=== PATIENT | female | born 2000 | race Caucasian/White ===

== ENCOUNTER 2022-05-01 20:25 | Emergency (ER) | payer OTHER, SELFPAY ==
--- NOTE | ~2022-05-01 | XR_ITS ---
XR ankle LT min 3V DATE: 05/01/2022 22:20 INDICATION: Fracture dislocation TECHNIQUE: 3 views COMPARISON: None FINDINGS: There is dislocation at the tibiotalar joint are still approximately 7.5 mm lateral subluxa tion at the tibiotalar joint. There is approximately one cortical width posterolateral displacement of the lateral malleolar fractu re fragment. Displacement at the lateral malleolar fracture and IMPRESSION: Approximately 7.5 mm residual lateral subluxation of the tibiotalar joint Approximately one cortical width posterolateral displacement of the linear oblique lateral malleolar fracture Reviewed, dictated and finalized at location A. IMPRESSION: Approximately 7.5 mm residual lateral subluxation of the tibiotalar joint Approximately one cortical width posterolateral displacement of the linear obli que lateral malleolar fracture
--- NOTE | ~2022-05-01 | XR_ITS ---
XR ankle LT min 3V DATE: 05/01/2022 21:00 INDICATION: Patient fell off of a slide. Left ankle injury, pain, swelling TECHNIQUE: 4 views COMPARISON: None FINDINGS: There is lateral dislocation of the tibiotalar joint with linear oblique minimally displace d lateral malleolar fracture. The medial malleolus and posterior malleolus appear intact. There is overlying soft tissue swelling, particularly anterolaterally. IMPRESSION: Laterally displaced lateral malleolar fracture and lateral dislocation at the tibiotalar joint Reviewed, dictated and finalized at location A. IMPRESSION: Laterally displaced lateral malleolar fracture and lateral dislocat ion at the tibiotalar joint
[2022-05-01 20:40] VITALS: BP 120/60; PULSE 71; RESP 16; TEMP 37.3; O2SAT 100
--- NOTE | 2022-05-01 21:12 | ED.LOWEXIN ---
HPI - Extremity Injury (Lower) General Chief Complaint: Extremity Injury, Lower Stated Complaint: left ankle pain Time Seen by Provider: 05/01/22 20:45 Source: patient Mode of arrival: ambulatory Limitations: no limitations History of Present Illness HPI Narrative: Patient is a 21 y/o female who presents to the ED with c/o L ankle pain. Patient reports she was at the [employer] [facility] earlier today and sliding down a slide when her left foot got caught in one of the slide rails causing a twisting inversion injury. Patient complaining of pain and swelling to her left ankle since then. She was unable to ambulate. Denies any numbness, tingling, other injury. Related Data Home Medications Medication Instructions Recorded Confirmed albuterol sulfate 90 mcg/actuation 1 puff inhalation Q4H PRN 01/19/22 01/20/22 aerosol inhaler Allergies Allergy/AdvReac Type Severity Reaction Status Date / Time No Known Allergies Allergy Verified 05/01/22 20:39 Review of Systems Review of Systems: CONSTITUTIONAL: Denies fever, chills, or sweats. SKIN: See HPI. MUSCULOSKELETAL: See HPI. NEUROLOGIC: Denies tingling, numbness, or weakness. All systems reviewed & are unremarkable except as noted in HPI and below PMFSH Past Medical History Medical History Allergy Asthma Surgical History Surgical History [place] teeth extracted Family History Family History Mother No problems noted. Father Hypertension Dyslipidemia Sibling No problems noted. Grandparent Diabetes mellitus Arthritis Social History Social History Smoking status: Never smoker Alcohol intake: current Alcohol use details: socially Substance use: never Substance use type: does not use Lack of Transportation: No Lack of Food: Never True Current Housing: I Have Housing Concerned About Future Housing: No Difficulty Paying Gas/Electric Bills: No Difficulty Paying for Meds: No Currently Unemployed: No Education: High School Diploma/GED Difficulty w/ Childcare or Family Care: No Living arrangements: with family Occupation/Education: occupation Gender identity (if verbalized by the patient): Female Sexual Orientation (if Verbalized by the Patient): Straight or Heterosexual Exam Narrative: GENERAL: Well appearing, obese, non-toxic, in no acute distress. HEAD: Normocephalic, atraumatic. NECK: Supple. No adenopathy, no masses. RESPIRATORY: Airway patent, respirations nonlabored. CARDIOVASCULAR: Regular rate and rhythm without murmurs, rubs, or gallops. Pedal pulses 2+ and equal bilaterally. MUSCULOSKELETAL: Limited range of motion of left ankle due to pain. Moderate swelling noted diffusely throughout to left ankle joint. Tenderness over the left lateral malleoli. No significant tenderness along medial malleoli, metatarsals. No TTP in knee. SKIN: Warm, dry, normal color. No rashes. NEURO: A&O X3. Speech clear. Cranial nerves II-XII grossly intact. Steady gait. No ataxic movements. PSYCHIATRIC: Appropriate mood and affect. Normal interaction. Course Vital Signs Vital signs: Vital Signs Temperature 99.2 F 05/01/22 20:40 Pulse Rate 71 05/01/22 20:40 Respiratory Rate 16 05/01/22 20:40 Blood Pressure 120/60 05/01/22 20:40 Pulse Oximetry 100 05/01/22 20:40 Oxygen Delivery Room Air 05/01/22 20:40 Temperature 99.2 F 05/01/22 20:40 Pulse Rate 71 05/01/22 20:40 Respiratory Rate 16 05/01/22 20:40 Blood Pressure 120/60 05/01/22 20:40 Pulse Oximetry 100 05/01/22 20:40 Oxygen Delivery Room Air 05/01/22 20:40 Procedures Orthopedic Joint Reduction Joint #1: Orthopedic Joint Reduction Date: 05/01/22 Orthopedic Joint Reductio
[2022-05-01] MEDS: HYDROcodone/acetaminophen (*CRX) 5-325 MG TABLET 1 TAB PO (21:33)
== END 2022-05-01 23:01 | disposition home or self-care (01) ==
PROVIDERS: Emergency Provider Physician Assistant; PCP Nurse Practitioner Family
DX: S82.62XA Displaced fracture of lateral malleolus of left fibula, initial encounter for closed fracture (principal); S93.05XA Dislocation of left ankle joint, initial encounter; X50.0XXA Overexertion from strenuous movement or load, initial encounter; J45.909 Unspecified asthma, uncomplicated; Z79.51 Long term (current) use of inhaled steroids
CPT/HCPCS: 27840; 73610; 99285; A9270

== ENCOUNTER 2022-05-05 01:08 | Day surgery (SDC) | payer OTHER, SELFPAY ==
[2022-05-04 12:22] VITALS: BMI 29.5
--- NOTE | 2022-05-04 12:26 | PC.NURSE ---
Report to the Outpatient Waiting Room, entrance under the green pavilion located off [facility], at time 1300 on date 05/05/22. Planned Procedure Time: 1500. Time changes happen often and if your time is changed the preop area will call you the afternoon before. - You and your visitor will be asked to self-screen and do not enter if you have any COVID symptoms. - Only one visitor is requested with a max of two and NO children visitors are allowed at this time. - The patient visitor may be requested to leave or wait in car when not with patient due to distancing restrictions. - A mask is optional within the hospital at this time. Patients may have clear liquids (water, carbonated beverages, clear teas, apple juice) until 3 hours prior to surgery with a maximum of 20 ounces. - No food from midnight until time of surgery Take the following medications with a SIP of water the morning of surgery: INHALER DO NOT STOP ANY OF YOUR OTHER PRESCRIPTION MEDICATIONS PRIOR TO SURGERY EXCEPT THE FOLLOWING Medications to discontinue per physician: NAPROXEN Date to take last dose: PER DR. HERBERT Please no make-up, nail lithuanian, hairspray, perfume, deodorant, or body powder the day of surgery. No jewelry (including any body piercings) or valuables the day of surgery, leave them at home. Please take a shower or bath the night before, or the morning of, surgery with an antibacterial soap. Wear comfortable, loose fitting clothing. - Jewelry must be removed prior to entering the operating room. Rings and piercings that are not removed may be cut off. - The hospital will not accept responsibility for valuables. - Please leave all valuables, including medications, at home the day of surgery. If you are going home after surgery, a licensed lyft driver must drive you home. - NO public transportation without another adult if you receive anesthesia. - We recommend that an adult stay with you for 24 hours following discharge. - We also recommend that you do not drive, make important decision, drink alcoholic beverages, or take any drugs that were not prescribed by your health care provider for at least 24 hours after your discharge time. Follow any additional instructions given to you from your surgeon. If you or anyone in your household have experienced Covid symptoms in the past week, please notify your surgeon or the nurse liaison at the phone number below for possible testing. Telephone instructions given to PT - LILA LEROY and asked if any additional questions and then verbalized understanding. Patient advised to call surgeon office or pre surgery nurse liaison [phone] if any additional questions.
[2022-05-05] VITALS (7 sets, daily range): BP systolic 116–134; BP diastolic 49–75; PULSE 89–120; RESP 13–18; TEMP 36.7–37; O2SAT 100
--- NOTE | ~2022-05-05 | XR_ITS ---
EXAMINATION: XR surgery orthopedic DATE: 05/05/2022 15:21 INDICATION: Distal left fibular fracture. TECHNIQUE: 4 intraoperative views fluoroscopic views of left ankle were obtained. I was not present. Fluoroscopy exposure time was 20 seconds. COMPARISON: Left ankle radiographs 05/01/2022 FINDINGS: There is an oblique fracture of distal fibula status post open reduction internal fixation with plate and multiple screws. There is reduction of the previously seen widening of the medial ankl e mortise. IMPRESSION: 1. Oblique fracture of distal fibula status post open reduction internal fixation. 2. Reduction of the previously seen widening of the medial ankle mortise. Reviewed, dictated and finalized at location A. IMPRESSION: 1. Oblique fracture of distal fibula status post open reduction internal fixati on. 2. Reduction of the previously seen widening of the medial ankle mortise.
--- NOTE | 2022-05-05 10:19 | WPDHPUPDATE1 ---
History and Physical Update Update Date/Time: 05/05/22 10:19 History and Physical has been reviewed, including an updated exam of the patient. There are NO changes in the patient's condition. Risks, benefits, and alternatives have been discussed and questions answered. Patient agrees to proceed with procedure.
[2022-05-05] MEDS: ACETAMINOPHEN 500 MG TABLET 1000 MG PO (13:39)
--- NOTE | 2022-05-05 13:40 | WPDANESEPPF ---
Anes - Initial Pre Proc Eval Procedure: Operation Date: 05/05/22 15:00 Proposed Procedures p Open Reduction Internal Fixation Left Lateral Malleolus Ankle Fracture - Jose Coburn MD Date/Time: 05/05/22 13:40 Surgeon: Jose Coburn MD Pre Op Diagnosis: left lateral malleolus ankle fracture Patient Data Age: 21 Gender: F Height: 1.75 m Weight: 95.45 kg Last Vital Signs Temp 37.0 C 05/05/22 13:21 Pulse 89 05/05/22 13:21 Resp 16 05/05/22 13:21 BP 118/62 05/05/22 13:21 Pulse Ox 100 05/05/22 13:21 O2 Del Method Room Air 05/05/22 13:21 Allergies Allergy/AdvReac Type Severity Reaction Status Date / Time No Known Allergies Allergy Verified 05/05/22 13:34 Home Medications Medication Instructions Recorded Confirmed Type albuterol sulfate 90 mcg/actuation 1 puff inhalation Q4H PRN 01/19/22 05/05/22 History aerosol inhaler Bronchospasm naproxen 500 mg tablet 500 mg PO BID PRN pain #20 tabs 05/01/22 05/05/22 Rx oxycodone-acetaminophen 5 mg-325 1 - 2 tablet PO Q4-6H PRN pain #30 05/05/22 Rx mg tablet tabs Patient hx anesthesia problems: none Family hx anesthesia problems: none Results Review: All pre-operative results and documents have been reviewed as part of the pre-operative evaluation. [facility] Past Medical History Medical History (Updated 05/05/22 @ 13:40 by Geoffrey Cabral MD) Allergy Asthma Obesity Surgical History Surgical History [place] teeth extracted Family History Family History Mother No problems noted. Father Hypertension Dyslipidemia Sibling No problems noted. Grandparent Diabetes mellitus Arthritis Social History Social History Smoking status: Never smoker Alcohol intake: current Drinks per week: 1 Alcohol use details: socially Substance use: never Substance use type: does not use Lack of Transportation: No Lack of Food: Never True Current Housing: I Have Housing Concerned About Future Housing: No Difficulty Paying Gas/Electric Bills: No Difficulty Paying for Meds: No Currently Unemployed: No Education: High School Diploma/GED Difficulty w/ Childcare or Family Care: No Living arrangements: with family Occupation/Education: occupation Gender identity (if verbalized by the patient): Female Sexual Orientation (if Verbalized by the Patient): Straight or Heterosexual Spiritual care concerns: No Anes - Eval Final PreProcedure Day of Procedure 05/05/22 13:40 Patient weight: obese Heart: regular rate and rhythm Lungs: clear to auscultation and normal air movement Airway: Mallampati scale class II Neurological: alert and oriented Last oral intake: >/= 8 hours ASA classification: II Emergent: no Anesthetic plan: proceed Anesthesia type and monitoring: general LMA Results Review: All pre-operative results and documents have been reviewed as part of the pre-operative evaluation. Informed Consent: The patient's anesthetic plan and its attendant risks and benefits were discussed with the patient/family/POA. Questions were solicited and answers provided to the satisfaction of the patient/family/POA.
--- NOTE | 2022-05-05 13:41 | WPDANESPNB ---
Anes - Peripheral Nerve Block Date/Time: 05/05/22 13:41 I have discussed with the patient/family/POA the placement of a peripheral nerve block for post-operative pain management, including associated risks, benefits, complications, and side effects. Alternative methods of post-operative analgesia were detailed. Questions were solicited and answers provided to the satisfaction of the patient/family/POA. Time-Out: A pre-procedural Time-Out was completed immediately before starting the procedure and confirmed: Patient Identification, Site, Procedure, Patient Position and the Availability of Requisite Equipment. Clinical Indications: Acute post-operative pain management requested by the operative surgeon. Nerve Block Insertion Note Anes-nerve block: posterior fossa sciatic (20cc) left and adductor canal (10cc) left Patient position: supine Skin prep: chlorhexidine Needle: 22 gauge, stimulating, insulated echogenic needle. Needle length: 80 mm Technique: ultrasound (in plane) Injectate: bupivacaine 0.25% with epi 5 mcg/ml (20cc) Observations: tolerated well Complications: none Procedure start time:: 1400 Procedure end time:: 1405
[2022-05-05] MEDS: LACTATED RINGERS 1,000 ML 30 ML IV CONT ×2 (13:51→15:39)
[2022-05-05] MEDS: KETOROLAC 15 MG/ML VIAL (*BKC) IV PUSH (13:52)
[2022-05-05] MEDS: ceFAZolin 2 GM/D5W 50 ML 2 GM/50 ML BAG IVPB (14:19)
--- NOTE | 2022-05-05 15:56 | W.PM.PROC2 ---
Procedure Note - Detailed Date of Procedure 05/05/22 Pre-op Diagnosis 1. Left lateral malleolus ankle fracture 2. Left ankle deltoid ligament sprain. Post-op Diagnosis Other Procedure Performed ORIF left ankle lateral malleolus fracture. Surgeon Jose Coburn MD Anesthesia General Findings Excellent bone quality. Anatomic fracture reduction. 1/3 Synthes tubular plate used. Nonlocking screws. AP lag screw with good compression. Syndesmosis intact. Description of Procedure With a general anesthetic was administered. The limb was prepped and draped in the usual sterile fashion with a well-padded tourniquet high on the thigh. A bump was placed under the hip. The limb was exsanguinated and the tourniquet inflated to 300 millimeters of mercury during the procedure. A longitudinal incision was created at the distal fibula. Careful dissection was carried down to bone. Perineal nerve branches were protected. The fracture was carefully exposed. Callus and debris was irrigated from the wound. The fracture was brought out to length. Reduction was accomplished with the reduction forceps. A single anterior to posterior compression lag screw was placed. The fixation plate was contoured. Fixation was performed with a combination of cortical and cancellous screws. Fluoroscopy was used throughout the procedure to confirm anatomic reduction and appropriate placement of the implants. The tourniquet was released. Meticulous hemostasis was obtained. Wound was closed in layers with 2-0 Vicryl suture 3-0 Monocryl suture and sandeep. A sterile splint with padding was applied. The patient was extubated and brought to the recovery room in stable condition. There were no complications. Implants Synthes 1/3 tubular 7 hole plate. Cortical and cancellous nonlocking screws. Estimated Blood Loss 5 Pathology None sent Complications No immediate complications Condition Stable Disposition PACU [facility] Billing Surgery - Charge Forward: Surgery Billing
--- NOTE | 2022-05-05 16:10 | SUR.PHASEI ---
1601: Simple mask removed.
== END 2022-05-05 17:27 | disposition home or self-care (01) ==
PROVIDERS: PCP Nurse Practitioner Family; Visit Provider Orthopaedic Surgery
PROC: (CPT 27792; principal; 2022-05-05 15:00)
DX: S82.62XA Displaced fracture of lateral malleolus of left fibula, initial encounter for closed fracture (principal); S93.422A Sprain of deltoid ligament of left ankle, initial encounter; G89.18 Other acute postprocedural pain; X50.0XXA Overexertion from strenuous movement or load, initial encounter; J45.909 Unspecified asthma, uncomplicated; Z79.51 Long term (current) use of inhaled steroids; E66.9 Obesity, unspecified; Z68.31 Body mass index [BMI] 31.0-31.9, adult
CPT/HCPCS: 27792; 64447; 64445; 99199; A9270; C1713; J0690; J1100; J1885; J2250; J2405; J2704; J3010; J7120

== ENCOUNTER 2022-08-31 17:28 | Outpatient (CLI) | payer OTHER, SELFPAY ==
[2022-09-04 14:47] LABS: DHEA-Sulfate 236 mcg/dL (18-391)
[2022-09-05 05:11] LABS: FSH 3.8 mIU/mL (***); Progesterone 0.4 ng/mL (***)
[2022-09-07 10:46] LABS: Testosterone Free 1.1 pg/mL (0.1-6.4); Testosterone Total 27 ng/dL (2-45)
[2022-09-08 01:56] LABS: Estradiol, Ultrasensitive 7 pg/mL
== END 2022-08-31 17:29 | disposition home or self-care (01) ==
PROVIDERS: PCP Nurse Practitioner Family; Visit Provider Obstetrics & Gynecology
DX: L70.0 Acne vulgaris (principal)
CPT/HCPCS: 36415; 82627; 82670; 83001; 83498; 84144; 84146; 84402; 84403

== ENCOUNTER 2024-01-17 13:56 | Emergency (ER) | payer OTHER, SELFPAY ==
--- NOTE | 2024-01-17 14:01 | ED.URI ---
HPI - URI/Sore Throat General Chief Complaint: Upper Respiratory Infection Stated Complaint: flu like symptoms Time Seen by Provider: 01/17/24 14:05 Source: patient Mode of arrival: ambulatory Limitations: no limitations History of Present Illness HPI Narrative: Patient is a 23-year-old female presents with headache, fatigue, congestion a cough since Wednesday. Denies any fever, chills, nausea, vomiting, diarrhea. Related Data Home Medications Medication Instructions Recorded Confirmed spironolactone 100 mg tablet 100 mg PO DAILY 01/27/23 01/17/24 norethindrone 1 mg-ethinyl 1 tablet PO DAILY 01/05/24 01/17/24 estradiol 20 mcg (24)-iron 75 mg (4) tablet (Blisovi 24 Fe) Allergies Allergy/AdvReac Type Severity Reaction Status Date / Time No Known Allergies Allergy Verified 01/17/24 14:03 Review of Systems Review of Systems: All systems reviewed & are unremarkable except as noted in HPI and below Constitutional: Constitutional: Denies body ache(s), Denies chills, Reports fatigue, Denies fever(s), Reports headache(s), Denies malaise and Denies weakness Eyes: Eyes: Denies blurry vision, Denies itchy eyes and Denies loss of vision ENT: Denies otalgia, Denies headache(s), Reports nasal congestion, Denies sinus pain and Denies sore throat Cardiovascular: Cardiovascular: Denies chest pain, Denies irregular heart rhythm and Denies dyspnea Respiratory: Respiratory: Reports cough and Denies dyspnea Gastrointestinal: Gastrointestinal: Denies abdominal pain, Denies diarrhea, Denies nausea and Denies vomiting Musculoskeletal: Musculoskeletal: Denies back pain, Denies myalgias and Denies arthralgias Integumentary/Breasts: Skin/Breast: Denies pruritus and Denies rash Neurologic: Denies headache(s), Denies loss of vision and Denies weakness Psychiatric: Psychiatric: Reports no additional psychiatric complaints Endocrine: Endocrine: Denies fatigue Allergic/Immunologic: Allergic/Immunologic: Denies itchy eyes PMFSH Past Medical History Medical History Allergy Asthma Obesity Surgical History Surgical History History of ankle surgery History of open reduction and internal fixation (ORIF) procedure (~05/05/22) ORIF left ankle lateral malleolus fracture. [place] teeth extracted Family History Family History Mother No problems noted. Father Hypertension Dyslipidemia Sibling No problems noted. Grandparent Diabetes mellitus Arthritis Sibling History of PCOS Social History Social History Social History: 09/16/23 Patient declined to complete SDOH Smoking status: Never smoker Alcohol intake: current Drinks per week: 1 Alcohol use details: socially Substance use: never Substance use type: does not use Lack of Transportation: No Lack of Food: Never True Current Housing: I Have Housing Concerned About Future Housing: No Difficulty Paying Gas/Electric Bills: No Difficulty Paying for Meds: No Currently Unemployed: No Education: High School Diploma/GED Difficulty w/ Childcare or Family Care: No Living arrangements: with family Occupation/Education: occupation Gender identity (if verbalized by the patient): Female Sexual Orientation (if Verbalized by the Patient): Straight or Heterosexual Spiritual care concerns: No Comments At time of signature, agree with nursing past medical, surgical, social and family history. There is no relevant family history pertinent to the presenting complaint. Exam Const: General: cooperative, healthy appearing, comfortable, no acute distress and well nourished Nutritional Appearance: well nourished Orientation/consciousness: patient oriented x3 Limitations: no limitations HENMT: Head: normal to inspection, normocephalic and atraumatic Ears: hearing grossly normal bilaterally, external ears normal, TM's normal bilaterally, EAC's normal and no periauricular adenopathy Face/Nose/Sinus: Normal external nose present, Abnormal mucous membranes and turbinates present erythematous bilateral and diffuse, normal facial exam, sinuses nontender and face symmetric Face and sinus: normal facial exam, sinuses nontender and face symmetric Mouth: Yes Normal oral and palatal mucosa present, Yes lip normal, Yes tongue normal, Yes Normal salivary glands and ducts present, Yes oropharynx normal and Yes moist mucous membranes Teeth and gingiva: dentition normal Throat: posterior oropharynx normal, tonsils normal and uvula midline Eyes: General: appearance normal, both eyes and all related structures Alignment and Position: alignment normal and position normal Periorbital: periorbital findings normal Eyelids: eyelids normal Pupils: Equal, round and reactive pupils present Neck: Neck: normal visual inspection, full ROM, no lymphadenopathy and supple Chest: Chest palpation & inspection: normal inspection of the chest and normal palpation of entire chest wall Resp: Effort & Inspection: normal respiratory effort and able to speak in complete sentences Auscultation: clear to auscultation bilaterally, no crackles, no rales, no rhonchi and no wheezes Cardio: Rate: regular rate Rhythm: regular rhythm Heart sounds: S1 normal heart sound present and S2 normal heart sound present GI: Inspection: normal to inspection Skin: General skin exam: normal color and no rashes or lesions noted Neuro: General: patient oriented x3 and moves all extremities Cranial nerves: Yes Equal, round and reactive pupils present Speech: normal speech Gait exam (Neuro): Normal gait present Extrem: General: normal to inspection, full ROM and no edema Psych: Appearance: grossly normal and well kempt Mental Status: mental status grossly normal Speech and movement: Normal speech and movement present Affect: normal affect Attitude: cooperative Thought process: Normal thought process present Course Course Emergency Course: Patient is aware of diagnosis, understands and agrees to treatment plan. Anticipatory guidance given. Patient agrees to follow-up as directed and is aware of reasons to seek care at the emergency department. Portions of this record may have been created with voice recognition software Level of Care: Express Care Visit Vital Signs Vital signs: Vital Signs Temperature 36.7 C 01/17/24 14:05 Pulse Rate 104 H 01/17/24 14:05 Respiratory Rate 18 01/17/24 14:05 Blood Pressure 137/86 01/17/24 14:05 Pulse Oximetry 100 01/17/24 14:05 Oxygen Delivery Room Air 01/17/24 14:05 Temperature 36.7 C 01/17/24 14:05 Pulse Rate 104 H 01/17/24 14:05 Respiratory Rate 18 01/17/24 14:05 Blood Pressure 137/86 01/17/24 14:05 Pulse Oximetry 100 01/17/24 14:05 Oxygen Delivery Room Air 01/17/24 14:05 Reviewed MDM - URI/Sore Throat MDM Narrative Medical decision making narrative: Discharge instructions reviewed with patient, as well as provided in writing per nursing staff. The instructions also include specific and strict return/GO TO THE ER as well as f/u information. All questions have been answered, and the patient deny any further questions with discharge and discharge plan. Differential diagnosis considered: Lara virus, strep pharyngitis, allergic rhinitis, upper respiratory tract infection, sinusitis, rhinosinusitis, nasopharyngitis. viral pharyngitis, otitis media, otitis externa, otitis effusion, foreign body, cerumen impaction, viral syndrome, and influenza.? Exam findings show no acute concerns or changes; patient is non-toxic appearing and is in no distress.? Patient is appropriate for outpatient treatment and follow-up.? Medical Records Attestation: I reviewed the patient's medical records. Lab Data Attestation: I reviewed the patient's lab results. Labs: Lab Results 01/17/24 Range/Units 14:20 POC Influenza A Ag Negative (Negative) POC Influenza B Ag Positive (Negative) Discharge Plan Discharge Clinical Impression: Influenza Patient Disposition: Home, Self-Care Condition: Stable Instructions: Influenza (ED) Additional Instructions: Your positive for influenza B Symptomatic treatments include -Alternate Tylenol and Motrin per package directions for fever or pain. -Antihistamine medication such as Benadryl/Zyrtec at night and Claritin/Caity during the day can help improve symptoms. -Use Flonase twice a day for 5 days then daily to help reduce the inflammation and dry up your sinuses. -You can also use Sudafed behind the pharmacy counter(12 or 24 hour). Be sure to drink plenty of water with these medications at least 8 ounces with every dose and it is important to drink 8 to 10 glasses of water per day. Water is a natural decongestant -Eat and drink things that are easy to swallow, like tea or soup, or popsicles. -Oral rinses such as: Salt water gargles and/or may use topical anesthetic (eg. Chloraseptic spray) or lozenges to relieve dryness or throat pain). -Frequent hand washing or hand milled rubber tender is one of the best ways to prevent spread of infection. -Using a vaporizer or humidifier at night will also help thin secretions and help with coughing up phlegm. -Follow up with primary care provider in 3-5 days if condition is not improving - For new or worsening symptoms go directly to the nearest ER Prescriptions: New oseltamivir [Tamiflu] 75 mg capsule 75 mg PO Q12H 5 Days Qty: 10 0RF No Action Blisovi 24 Fe 1 mg-20 mcg (24)/75 mg (4) tablet 1 tablet PO DAILY spironolactone 100 mg tablet 100 mg PO DAILY albuterol sulfate 90 mcg/actuation HFA aerosol inhaler 2 puff inhalation Q4H PRN (Reason: Bronchospasm) Qty: 8.5 2RF budesonide-formoterol [Symbicort] 80-4.5 mcg/actuation HFA aerosol inhaler 2 puff inhalation Q12H Qty: 10.2 0RF Follow-up/Referrals: PHYSICIAN,WOODEN FRAME [employer]ILDER [Primary Care Provider] - Servando Baldiwn MD [Physician] - 3 Days (Establish care) Stand Alone Forms: Work/School Release IP Time of Disposition: 14:32
[2024-01-17 14:05] VITALS: BP 137/86; PULSE 104; RESP 18; TEMP 36.7; O2SAT 100
[2024-01-17 14:22] LABS: EDINFLUASCREEN Negative (Negative); EDINFLUBSCREEN Positive (Negative)
== END 2024-01-17 14:33 | disposition home or self-care (01) ==
PROVIDERS: Emergency Provider Nurse Practitioner Family
DX: J10.1 Influenza due to other identified influenza virus with other respiratory manifestations (principal); J45.909 Unspecified asthma, uncomplicated; E66.9 Obesity, unspecified; Z68.30 Body mass index [BMI] 30.0-30.9, adult
CPT/HCPCS: 87804; 99213; G0463

== ENCOUNTER 2024-03-11 19:04 | Emergency (ER) | payer OTHER, SELFPAY ==
--- OUTSIDE RECORDS SUMMARY | 2024-03-11 19:06 | XMS_ITS | Data Portability ---
Author Organization [place] - [facility]/[place], [place]ern[place] Juan F ([facility]) Address [address] [place] [address] Care Team Providers Care Telephoner Name Role Phone SANDI CRAIG Primary Care Provider [phone] Assessment No assessment recorded. Plan of Treatment Reminders Order Date Submit Date Provider Last Modified By Organization Details Last Modified Time Details Appointments None recorded. Lab unlisted lab - *ih* strep screen, rapid swab (inhouse only) 2021 022 [facility], [address] [place] [address], [phone], 17:44:32 PPD (purified protein derivative) , skin test [email or web address] [place] [address] Laboratory, [address] [place] [address], [phone], 13:50:12 Referral None recorded. Procedures None recorded. Surgeries None recorded. Imaging None recorded. Medication Orders Tubersol 5 tub. unit/0.1 mL intradermal injection solution 2021 022 Not available 17:09:10 Patient TargetsNo targets recorded. Patient Instructions Encounter Date Encounter Id Patient Instructions Last Modified By Organization Details Last Modified Time 05/28/2021 [id number] sore throat: car e instructions sachin Not available 05/28/2021 17:39:40 10/06/2021 [id number] learning about healthy weight sachin Not available 10/06/2021 17:57:47 Reason for Referral None Reported. Results Created Date Observation Date Name Description Value Unit Range Abnormal Flag Note LastModifiedBy Organization Detail LastModifiedTime 05/29/19 22 05/28/2021 STREP SCREE N strep screen NEGATI VE negati ve Not Available [facility] [address] [place] [address], [phone], 05/28/2021 17:44:32 Result Notes None recorded. Problems Name Problem SNOMED Code Status Onset Date Resolution Date Notes Provider Name and Address Organization Details Recorded Time Asthma [id number] Active 022 Sandi Craig, NOEMI [address] [place] [address], [phone] , [facility] 05/28/2021 17:09:21 Problem Notes None recorded. Procedures Surgical History Date Name Laterality Status Provider Name and Address Organization Details Recorded Time extraction of wisdom tooth completed Laverne Contreras [facility] 10/06/2021 17:10:16 Imaging Results None recorded. Procedure Notes None recorded. Medical Equipment None Reported. Allergies No known drug allergies Medications Name Sig Start Date Stop Date Status Note LastModified by Organization Details LastModified Time amoxicill in 500 mg capsule TAKE 1 CAPSULE BY MOUTH 3 TIMES A DAY UNTIL GONE 10/06 completed Not Available Not Available Not Available hydrocodo ne 5 mg-acetam inophen 325 mg tablet TAKE 1 OR 2 TABS EVERY 6 HOURS NEEDED FOR PAIN 10/06 completed Not Available Not Available Not Available Tubersol 5 tub. unit/0.1 mL intraderm al injection solution Inject 0.1 mL by intrader mal route. 10/06 completed Left forearm Not Available Not Available Not Available rizatript an 10 mg tablet TAKE 1/2 TO 1 TABLET EVERY 2 HOURS NEEDED FOR HEADACHE . MAX DOSE OF 3 TABS IN A 24 HOUR PERIOD 10/06 completed Not Available Not Available Not Available amoxicill in 875 mg-potass ium clavulana te 125 mg tablet TAKE 1 TABLET BY MOUTH EVERY 12 HOURS UNTIL FINISHED 10/06 completed Not Available Not Available Not Available Symbicort active Not Available Not Nieves ilable Not Available Tri-Lo-Ma rzia 0.18 mg/0.215 mg/0.25 mg-25 mcg tablet TAKE 1 TABLET BY MOUTH ONCE DAILY. 28 DAY SUPPLY. NEEDS APPT FOR FURTHER REFILLS* * 10/06 completed Not Available Not Available Not Available ID NOW COVID-19 Test Kit TEST DIRECTED TODAY 10/06 completed Not Available Not Available Not Available Vitals Date Recorded Body height Provider Name an d Address Organization Details Last Updated DateTime 10/06/2021 175.26 cm Laverne Contreras [facility] 10/06/2021 17:00:21 Date Recorded Body mass index (BMI) Body weight Provider Name and Address Organization Details Last Updated DateTime 10/06/2021 30.1 kg/m2 95944.13 g Laverne Contreras [facility] 10/06/2021 17:03:24 Date Recorded Heart rate Provider Name an d Address Organization Details Last Updated DateTime 10/06/2021 85 /min Laverne Contreras [facility] 10/06/2021 17:05:52 Date Recorded Oxygen saturation Oxygen saturation in Arterial blood by Pulse oximetry Provider Name and Address Organization Details Last Updated DateTime 10/06/2021 98 % 98 % Laverne Contreras [facility] 10/06/2021 17:05:56 Date Recorded Body temperature Provider Name a nd Address Organization Details Last Updated DateTime 10/06/2021 98.8 [degF] Laverne Contreras [facility] 10/06/2021 17:08:25 Date Recorded Body weight Provider Name an d Address Organization Details Last Updated DateTime 05/28/2021 56646.56 g Laverne Contreras [facility] 05/28/2021 16:52:31 Date Recorded Body mass index (BMI) Provider Name and Address Organization Details Last Updated DateTime 05/28/2021 30.2 kg/m2 Laverne Contreras [facility] 05/28/2021 16:52:45 Date Recorded Body height Provider Name an d Address Organization Details Last Updated DateTime 05/28/2021 175.26 cm Laverne Contreras [facility] 05/28/2021 16:52:46 Date Recorded Heart rate Provider Name an d Address Organization Details Last Updated DateTime 05/28/2021 111 /min Laverne Ross [facility] 05/28/2021 16:53:13 Date Recorded Oxygen saturation Oxygen saturation in Arterial blood by Pulse oximetry Provider Name and Address Organization Details Last Updated DateTime 05/28/2021 99 % 99 % Laverne Contreras [facility] 05/28/2021 16:53:19 Date Recorded Systolic blood pressure Diastolic blood pressure Provider Name and Address Organization Details Last Updated DateTime 10/06/2021 128 mm[Hg] 72 mm[Hg] Laverne Contreras [facility] 10/06/2021 17:08:18 Date Recorded Systolic blood pressure Diastolic blood pressure Provider Name and Address Organization Details Last Updated DateTime 05/28/2021 112 mm[Hg] 72 mm[Hg] Laverne Contreras [facility] 05/28/2021 16:55:44 Social History Question Answer Notes LastModified by Organizat ion Details LastModified Time Tobacco Smoking Status [facility] 16:59:42 What Is Your Level Of Alcohol Consumption? Occasional Information not available 05/28/2021 Are You Currently Employed? Yes [email or web address] Information not available 10/06/2021 Are You Currently In School? Yes [email or web address] Information not available 10/06/2021 Do You Or Have You Ever Used Any Other Forms Of Tobacco Or Nicotine? No [email or web address] Information not available 05/28/2021 Sex: Unknown Functional Status None recorded. Mental Status None recorded. Family History Relationship Description Onset Age of this Age Resolved Age Notes LastModified by Organization Details LastModified Time Father No current problems or disability [email or web address] Not available 05/28 16:59:05 Mother No current problems or disability [email or web address] Not available 05/28 16:59:05 Maternal Grandfather Diabetes mellitus [email or web address] Not available 2021 17:10:48 Medical History Condition Response Mood Disorder, other N Gynecological History Statement/Question Response Date of LMP 09/29/2021 Obstetrics History GPAL:G 0 P 0 0 0 0 Immunizations Vaccine Type Date Status Note Provider Nam e and Address Organization Details Recorded Time COVID-19, mRNA, LNP-S, PF, 100 mcg/0.5mL dose or 50 mcg/0.25mL dose 1 completed Laverne downing, [facility] 05/28/2021 16:57:44 COVID-19, mRNA, LNP-S, PF, 100 mcg/0.5mL dose or 50 mcg/0.25mL dose 1 completed Laverne downing [facility] 05/28/2021 16:58:02 COVID-19, mRNA, LNP-S, PF, 100 mcg/0.5mL dose or 50 mcg/0.25mL dose 2 completed [facility] downing[facility] 05/28/2021 16:58:23 Influenza, split virus, quadrivalent, preservative 1 completed Sandi Craig NP [address] [place] [address], [phone], [facility] 05/28/2021 17:09:54 Past Encounters Encounter ID Performer Location Encounter Start Date Encounter Closed Date Diagnosis/Indication Diagnosis SNOMED-CT Code Diagnosis ICD10 Code Diagnosis Note [id number] Sandi Craig NP _[place] [facility] [address] [place] [phone] 05/28/2021 16:47:24 06/12/2021 11:09:06 Sore throat 735843969 J02.9 Negative rapid strep screen in office today. Encouraged patient to continue taking Zyrtec-D OTC per package instructio ns.Tylenol and Motrin OTC as needed per package instructio ns.Discuss ed the risks and benefits of recommende d medication s. After all questions were answered the patient consented to take the medication as prescribed .Salt water gargles frequently for comfort.Re st. Push fluids. Good handwashin g. Avoid close contact.Di scussed the plan of care with the patient. The patient agrees to plan of care. The patient will follow up as discussed. Return to the office with worsening of symptoms, new concerning symptoms, or with other concerns. History an d physical examination, [facility] 03334165 Z02.0 05/28/2021 iscussed healthy diet and continued regular exercise. Dentist twice a year for preventive visits and eye doctor for every-othe r-year eye exams. Safety.For m for student teaching completed. TST placed- patient will return on Wednesday05/30/2021 to have that read. [id number] Sandi Craig NP [place] [facility] [address] [place] [phone] 05/30/2021 16:37:20 06/05/2021 03:25:09 Tuberculosis screening 107654833 Z11.1 Discussed with patient. [id number] Sandi Craig NP [place] [facility] [address] [place] [phone] 10/06/2021 16:47:40 10/17/2021 11:17:02 Adult health examination 105961051 Z00.00 Counseled on diet, exercise, safe sex, sleep hygiene, vaccines. Form completed for substitute teaching. She is not in a high-risk category and does not need TB skin testing at this time.Discu ssed the plan of care with the patient. The patient agrees to plan of care. The patient will follow up as discussed. Return to the office with worsening of symptoms, new concerning symptoms, or with other concerns. Obesity 419461918 E66.9 Controlled /Stable. Continue efforts at improved diet and exercise. Health Concerns Section Related Observation LastModified by Organization Detai ls LastModified Time None Recorded Concern Status LastModified by Organization Details LastModified Time None Recorded Advance Directives Directive None Recorded Payers Encounter Date Sequence Insurance Name Policy Number Policy Hawkins Covered Member ID Hawkins Member ID Guarantor Name 05/28/2021 1 [facility] [id number] Santi Santillan [id number] Amalia Santillan 05/30/2021 1 [facility] [id number] Santi Santillan [id number] Amalia Santillan 10/06/2021 1 [facility] [id number] Santi Santillan [id number] Amalia Santillan Notes Date Note Type Note Provider Name and Address Organization Details Recorded Time 05/28/2021 text/html Sore ThroatRepor domingo bypatient.[facility] Onset/Timing:date of onset 05/27 Duration:started 1 day(s) ago Quality:difficulty swallowing Severity:same Context:no recent travel 05/28/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 LMP: 3 weeks ago. Not sexually active.Tries to eat a healthy diet. Exercises 4 x/week.Goes to the dentist regularly.Wears reading glasses. Sore throat started last night and she has a history of strep. Some runny nose that is not unusual for her and no PND. No cough. No n/v/d. Eating and drinking okay. No unusual rashes. No recent travel. No known fevers. Took Ibuprofen last night so not sure if it helped. Also took a Zyrtec-D for symptoms. Sandi Craig NP [address] [place] [address], [phone], [facility] 05/28/2021 17:29:10 10/06/2021 text/html Patient reports she is in good health . Tries to eat a well balanced diet- no dietary restrictions. Tries to exercise regularly. Goes to the dentist twice a year and last visit was a few months ago. Last preventive eye exam was earlier this year- she wears reading glasses. Not sexually active at this time. Sleep is adequate and she averages around 8 hours per night. She states she has had the Gardasil vaccine series. No complaints or concerns. Sandi Craig NP [address] [place] [address], [phone], [facility]/[place] 10/06/2021 17:57:52 OBGyn Episode No OBEpisode recorded.
--- OUTSIDE RECORDS SUMMARY | 2024-03-11 19:06 | XMS_ITS | Referral Summary ---
Author Organization [facility] Address [address] [place] [address] Care Team Providers Care Prepper Name Role Phone Shannan Conner MD Primary Care Provider [phone] Source Comments [facility],non-owned Affiliates and Associated Physician Practices is amultiple site organization consisting of ambulatory clinics and hospital sitesin [place], [place], [place] and [place]. This disclosure is being madepursuant to the Care Everywhere program and may not contain all information available regarding this patient. Last updated 17.[facility] Allergies No known active allergies Medications * Be aware that medications may not be up to date on this document. Alwaysverify current medications with the patient. Medication Sig Dispensed Refills Start Date End Date Status albuterol HFA (PROAIR HFA) 108 (90 BASE) MCG/ACT inhaler Inhale 2 Puffs by mouth every 4 hours as needed for Wheezing 1 Inhaler 12/11/2015 Active SYMBICORT 80-4.5 MCG/ACT inhaler Inhale 2 puffs by mouth 2 times daily 10/08/2019 Active [id number] 0.18/0.215/0.25 MG-25 MCG tabletIndications:Ac ne vulgaris TAKE 1 TABLET BY MOUTH ONCE DAILY . 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 (AF LURIA, FLUZONE TRIVALENT; 6MO+) (IIV3) 01/01/2012,11/13/2010,01/21/2009 DTaP VACCINE IM (6wk-6yrs) 05/27/2004,,1999,10/05,1999 HEP A PEDS 2 DOSE 01/01/2012,07/31/2010 HEP B VACCINE, PED/ADOL 02/26/2000,1999, HIB BOOSTER 12/17/2000, 0,1999,08/04 Human Papilloma Virus Roz valent Vaccine 01/01/2012,08/03/2011,11/13/2010 MENINGOCOCCAL CONJUGATE (MCV4P) 08/03/2011 MMR 05/27/2004,05/28/2000 POLIO IPV 05/27/2004, 1,1999,08/04 PPD 05/24/2000 TDAP (7yrs+) 07/31/2010 VARICELLA 07/31/2010,06/10/2001 Social History Tobacco Use Types Packs/Day Years Used Date Smoking Tobacco: Never Smokeless Tobacco: Never Alcohol Use Standard Drinks/Week Comments No 0 (1 standard drink = 0.6 oz pur e alcohol) Sex and Gender Information Value Date Recorded Sex Assigned at Not on file Gender Identity Not on file Sexual Orientation Not on file Last Filed Vital Signs Vital Sign Reading Time Taken Comments Blood Pressure 106/58 10/17/2014 1:11 PM CDT Pulse 76 09/19/2012 10:33 AM CDT Temperature 36.3 ??C (97.4 ??F) 12/26/2013 3:50 PM CS T Respiratory Rate - - Oxygen Saturation - - Inhaled Oxygen Concentration - - Weight 76.9 kg (169 lb 8.5 oz) 10/17/2014 1:11 P M CDT Height 172.3 cm (5' 7.84 ) 10/17/2014 1:11 PM CD T Body Mass Index 25.9 10/17/2014 1:11 PM CDT Plan of Treatment Not on file Care Teams Prepper Relationship Specialty Start Date End Date Shannan Conner MD PCP - General 08/03/17
--- OUTSIDE RECORDS SUMMARY | 2024-03-11 19:06 | XMS_ITS | Patient Health Summary ---
Author Organization [facility] Address [address] [place] [place] [address] Care Team Providers Care Cathode Builder Name Role Phone Shannan Conner MD Primary Care Provider [phone] [facility],non-owned Affiliates and Associated Physician Practices is amultiple site organization consisting of ambulatory clinics and hospital sitesin [place], [place], [place] and [place]. This disclosure is being madepursuant to the Care Everywhere program and may not contain all information available regarding this patient. Last updated 17.[facility] Allergies No known active allergies Medications * Be aware that medications may not be up to date on this document. Alwaysverify current medications with the patient. * albuterol HFA (PROAIR HFA) 108 (90 BASE) MCG/ACT inhaler(Started 12/11/2015) Inhale 2 Puffs by mouth every 4 hours as needed for Wheezing * SYMBICORT 80-4.5 MCG/ACT inhaler(Started 10/08/2019) Inhale 2 puffs by mouth 2 times daily * [id number] 0.18/0.215/0.25 MG-25 MCG tablet(Started 05/19/2021) TAKE 1 TABLET BY MOUTH ONCE DAILY . 30 DAY SUPPLY Active Problems Problem Noted Date Diagnosed Date Acne vulgaris 02/19/2020 Proteinuria 10/17/2014 Asthma, intermittent 08/03/2011 Resolved Problems Problem Noted Date Diagnosed Date Resolved Date Exercise-induced asthma 08/03/2011 07/0 02/2013 Asthma 04/30/2009 08/03/2011 Immunizations * INFLUENZA VACCINE, TRIV. (AFLURIA, FLUZONE TRIVALENT; 6MO+) (IIV3)(Given 01/01/2012, 11/13/2010, 01/21/2009) * DTaP VACCINE IM (6wk-6yrs)(Given 05/27/2004, 12/17/2000, 1999, 1999, 1999) * HEP A PEDS 2 DOSE(Given 01/01/2012, 07/31/2010) * HEP B VACCINE, PED/ADOL(Given 02/26/2000, 1999, 1999) * HIB BOOSTER(Given 12/17/2000, 1999, 1999, 1999) * Human Papilloma Virus Quadrivalent Vaccine(Given 01/01/2012, 08/03/2011, 11/13/2010) * MENINGOCOCCAL CONJUGATE (MCV4P)(Given 08/03/2011) * MMR(Given 05/27/2004, 05/28/2000) * POLIO IPV(Given 05/27/2004, 08/23/2000, 1999, 1999) * PPD(Given 05/24/2000) * TDAP (7yrs+)(Given 07/31/2010) * VARICELLA(Given 07/31/2010, 06/10/2001) Social History Tobacco Use Types Packs/Day Years [...] Mass Index 25.9 10/17/2014 1:11 PM CDT Procedures * URINE MICROSCOPIC ONLY(Performed 10/18/2014) Performed for Proteinuria * URINALYSIS REFLEX TO MICROSCOPIC NO CULTURE(Performed 10/18/2014) Performed for Proteinuria * CBC W/O DIFFERENTIAL(Performed 10/17/2014) Performed for Proteinuria * COMPLEMENT C3(Performed 10/17/2014) Performed for Proteinuria * RENAL FUNCTION PANEL(Performed 10/17/2014) Performed for Proteinuria * URINALYSIS - POCT (IP) BEAKER(Performed 10/17/2014) * URINALYSIS - POINT OF CARE(Performed 09/19/2012) Performed for Urine findings abnormal * URINALYSIS MICROSCOPIC ONLY REFLEXED(Performed 09/19/2012) Performed for Urine findings abnormal * URINALYSIS REFLEX TO MICROSCOPIC NO CULTURE(Performed 09/19/2012) Performed for Urine findings abnormal * LAB RESULTS ORDER(Performed 09/15/2012) Results * URINALYSIS ROUTINE AUTO (10/18/2014 6:30 AM CDT) Only the most recent of2 resultswithin the time period is included. Color UA Yellow Straw, Yellow, Dark Yellow 10/18/2014 5:14 PM [facility] Clarity UA Clear 10/18/2014 5:14 PM [facility] Specific Robinson UA 1.020 1.005 - 1.030 10/18/2014 5:14 PM [facility] pH UA 6.0 5.0 - 8.0 pH 10/18/2014 5:14 PM [facility] Protein UA Negative Negative 10/18/2014 5:14 PM [facility] Blood UA Negative Negative 10/18/2014 5:14 PM [facility] Leukocyte UA Negative Negative 10/18/2014 5:14 PM [facility] Nitrite UA Negative Negative 10/18/2014 5:14 PM [facility] Glucose UA Negative Negative 10/18/2014 5:14 PM [facility] Ketone UA Negative Negative 10/18/2014 5:14 PM [facility] Bilirubin UA Negative Negative 10/18/2014 5:14 PM [facility] Urobilinogen UA 0.2 0.1 - 1.0 EU/dL 10/18/2014 5:14 PM CDT [facility] Urine URINE SPECIMEN OBTAINED BY CLEAN CATCH PROCEDURE / Unknown Collection / Unknown 10/18/2014 6:30 AM CDT 10/18/2014 4:56 PM CDT Johnathon Akins MD LAB - URINAL YSIS ORDERABLES Performing Organization Address [facility] Co de Phone Number [facility] [address] [place] [phone] * URINALYSIS MICROSCOPIC ONLY (10/18/2014 6:30 AM CDT) RBC UA 0-2 0-2, 2-5 # /hpf 10/18/2014 6:11 PM CDT [facility] WBC UA 0-2 0-2, 2-5 # /hpf 10/18/2014 6:11 PM CDT [facility] Bacteria UA Trace None Seen, Trace 10/18/2014 6:11 PM CDT [facility] Epithelial Cell UA 0-2 0-2, 2-5 10/18/2014 6:11 PM T [facility] Urine URINE SPECIMEN OBTAINED BY CLEAN CATCH PROCEDURE / Unknown Collection / Unknown 10/18/2014 6:30 AM CDT 10/18/2014 4:56 PM CDT Johnathon Akins MD LAB - URINAL YSIS ORDERABLES Performing Organization Address [facility] Co de Phone Number [facility] [address] [place] [phone] * (ABNORMAL) CBC NO DIFFERENTIAL (10/17/2014 2:10 PM CDT) WBC 7.9 4.5 - 14.5 x10^9/L 10/17/2014 2:38 PM CDT [facility] RBC 4.51 4.10 - 5.10 x10^12/L 10/17/2014 2:38 PM CDT [facility] Hemoglobin 12.7 12.0 - 16.0 gm/dL 10/17/2014 2:38 PM CDT [facility] Hematocrit 38.3 36.0 - 47.0 % 10/17/2014 2:38 PM CDT [facility] MCV 84.9 78.0 - 98.0 fl 10/17/2014 2:38 PM CDT [facility] MCH 28.2 25.0 - 35.0 pg 10/17/2014 2:38 PM CDT [facility] MCHC 33.2 31.0 - 37.0 gm/dL 10/17/2014 2:38 PM CDT [facility] Platelet Count 307 100 - 400 x10^9/L 10/17/2014 2:38 PM T [facility] RDW-CV 12.6 11.5 - 14.0 % 10/17/2014 2:38 PM CDT [facility] MPV 9.7(H) 6.0 - 9.5 fl 10/17/2014 2:38 PM T [facility] Blood BLOOD SPECIMEN / Unknown Lab Venipuncture / Unknown 10/17/2014 2:10 PM CDT 10/17/2014 2:27 PM CDT Johnathon Akins MD LAB - HEMATO LOGY ORDERABLES Performing Organization Address City/State/[facility] Co de Phone Number [facility] [address] [place] [address] * (ABNORMAL) RENAL FUNCTION PANEL (10/17/2014 2:10 PM CDT) Glucose 114(H) 70 - 105 mg/dL 10/17/2014 4:11 PM CDT [facility] Sodium 142 136 - 145 mmol/L 10/17/2014 4:11 PM T [facility] Potassium 3.8 3.5 - 5.1 mmol/L 10/17/2014 4:11 PM T [facility] Chloride 111(H) 98 - 107 mmol/L 10/17/2014 4:11 PM CDT [facility] CO2 22 20 - 28 mmol/L 10/17/2014 4:11 PM CDT [facility] Calcium 9.40 9.08 - 10.48 mg/dL 10/17/2014 4:11 PM T [facility] Anion Gap 9 5 - 20 mmol/L 10/17/2014 4:11 PM T [facility] BUN 10.5 5.3 - 18.7 mg/dL 10/17/2014 4:11 PM CDT [facility] Creatinine 0.80 0.61 - 1.07 mg/dL 10/17/2014 4:11 PM T [facility] Albumin 4.0 3.3 - 4.9 gm/dL 10/17/2014 4:11 PM T [facility] Phosphorus 4.19 2.88 - 5.08 mg/dL 10/17/2014 4:11 PM T [facility] eGFR by MDRD mL/min/1.7 3m2 10/17/2014 4:11 PM T [facility] Comment: eGFR calculations are not performed for children under 18 years old. eGFR by MDRD mL/min/1.7 3m2 10/17/2014 4:11 PM T [facility] Comment: eGFR calculations are not performed for children under 18 years old. Blood BLOOD SPECIMEN / Unknown Lab Venipuncture / Unknown 10/17/2014 2:10 PM CDT 10/17/2014 2:28 PM CDT Johnathon Akins MD LAB - CHEMIS TRY ORDERABLES Performing Organization Address City/[facility]/ZIP Co de Phone Number [facility] [address] [place] [phone] * COMPLEMENT C3 (10/17/2014 2:10 PM CDT) Complement C3 95 83 - 193 mg/dL 10/17/2014 4:11 PM CDT [facility] Blood BLOOD SPECIMEN / Unknown Lab Venipuncture / Unknown 10/17/2014 2:10 PM CDT 10/17/2014 2:28 PM CDT Johnathon Akins MD LAB - CHEMIS TRY ORDERABLES [facility] [address] [place] [phone] * URINALYSIS - POCT (IP) BEAKER (10/17/2014 1:36 PM CDT) Glucose UA Negative Negative [facility] Bilirubin UA Negative Negative [facility] OCT [facility] Ketone UA Negative Negative [facility] Specific Robinson UA POCT 1.015 1.000 - 1.030 [facility] Blood UA Negative Negative [facility] pH UA 7.0 5.0 - 8.0 pH units [facility] Protein UA Negative Negative [facility] Urobilinogen UA 0.2 0.2 - 1.0 EU/dL [facility] Nitrite UA Negative Negative [facility] Leukocyte UA Negative Negative [facility] P OCT [facility] QC Verified Yes Yes [facility] PO CT TESTING Urine specimen (specimen) URINE / Unknown 10/17/2014 1:36 PM CDT Johnathon Akins MD LAB - POINT OF CARE ORDERABLES Performing Organization Address City/State/[facility] Co de Phone Number [facility] PO[facility] [address] [phone] * (ABNORMAL) URINALYSIS - POINT OF CARE (09/19/2012 11:11 AM CDT) Clarity UA POCT clear with sediment Color UA POCT dark mik Leukocyte UA trace Negative Nitrite UA POCT Negative Urobilinogen UA POCT 0.1 - 1.0 EU/dL Protein UA POCT Negative pH UA 5.0 - 8.0 pH units Blood UA Negative Specific Robinson UA POCT 1.025 1.002 - 1.030 Ketone UA 5 Negative Bilirubin UA POCT Negative Glucose UA Negative Urine specimen (specimen) URINE / Unknown 09/19/2012 11:11 AM CDT Shannan Conner MD LAB - POINT OF CARE ORDERABLES * URINALYSIS MICROSCOPIC ONLY REFLEXED (PO REF LAB) (09/19/2012 10:58 AM CDT) WBC UA 0-5 0 - 5 /hpf [facility] ACCOUNT BILL RBC UA None seen 0 - 3 /hpf [facility] ACCOUNT BILL Epithelial Cells (non renal) 0-10 0 - 10 /hpf [facility] ACCOUNT BILL Epithelial Cells (renal) NOT NEEDED [facility] ACCOUNT BILL Comment:Ancillary determined the test is not needed Casts ua NOT NEEDED [facility] ACCOUNT BILL Comment:Ancillary determined the test is not needed Casts UA NOT NEEDED [facility] ACCOUNT BILL Comment:Ancillary determined the test is not needed Crystals UA NOT NEEDED [facility] ACCOUNT BILL Comment:Ancillary determined the test is not needed Crystals UA NOT NEEDED [facility] ACCOUNT BILL Comment:Ancillary determined the test is not needed Mucus UA Present Not Estab. [facility] ACCOUNT BILL Bacteria UA Few None seen/Few [facility] ACCOUNT BILL Yeast UA NOT NEEDED [facility] ACCOUNT BILL Comment:Ancillary determined the test is not needed Trichomonas UA NOT NEEDED [facility] ACCOUNT BILL Comment:Ancillary determined the test is not needed Comment Urine NOT NEEDED [facility] ACCOUNT BILL Comment:Ancillary determined the test is not needed URINE SPECIMEN OBTAINED BY CLEAN CATCH PROCEDURE / Unknown 09/19/2012 10:58 AM CDT 09/19/2012 9:13 PM CDT Narrative Resulting Agency Comment [facility] [address] ??[facility] [phone] Shannan Conner MD LAB - URINALYSIS ORD ERABLES [facility] ACCOUNT BILL * LAB RESULTS ORDER (09/15/2012) Shannan Conner MD LAB - THERAPEUTIC DR ECHOLS MONITORING ORDERABLES Care Teams Cathode Builder Relationship Specialty Start Date End Date Shannan Conner MD PCP - General 08/03/17
--- OUTSIDE RECORDS SUMMARY | 2024-03-11 19:06 | XMS_ITS | Clinical Summary ---
Author Organization [facility] Address [address] [place] [address]. [place], [place] [address] [place] [phone] Care Team Providers Care Strip Machine Tender Name Role Phone None, Provider Primary Care Provider Unavaila ble Allergies No known active allergies Medications budesonide-formo terol 160-4.5 MCG/ACT inhaler Inhale 1 puff into the lungs daily. 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 Gender Identity Not on file Sexual Orientation Not on file Last Filed Vital Signs Vital Sign Reading Time Taken Comments Blood Pressure 130/75 09/16/2020 11:23 AM CDT Pulse 73 09/16/2020 11:23 AM CDT Temperature 36.8 ??C (98.3 ??F) 09/16/2020 11:23 AM C DT Respiratory Rate 18 09/16/2020 11:23 AM CDT Oxygen Saturation 98% 09/16/2020 11:23 AM CDT Inhaled Oxygen Concentration - - Weight 90.7 kg (200 lb) 09/16/2020 11:23 AM CDT Height 172.7 cm (5' 8 ) 09/16/2020 11:23 AM CDT Body Mass Index 30.41 09/16/2020 11:23 AM CDT Plan of Treatment Health Maintenance Due Date Last Done Comments Cervical Cancer Screening Pap Smear (Age 21 to 29) Every 3 Years 1999 Cervical Cancer Screening 1999 Annual Physical 05/25/2002 Hepatitis C 05/25/2017 DTaP, Tdap and Td Vaccines (7 - Td or Tdap) 07/31/2020 07/31/2010, 05/27/2004, 12/17/2000, Additional history exists COVID-19 Vaccine ( season) 2023 Influenza Adult (#1) 2023 01/01/2012, 11/13/2010, 01/21/2009 Hepatitis B Vaccines Completed 02/26/2000, 1999, 1999 Meningococcal Vaccine Aged Out 08/03/2011 No onesimo blaise eligible based on patient's age to complete this topic HPV Vaccines Completed 01/01/2012, 07/10, 11/13/2010 Meningococcal B Vaccine Aged Out No l onger eligible based on patient's age to complete this topic Pneumococcal Vaccine: Pediatrics (0 to 5 Years) and At-Risk Patients (6 to 64 Years) Aged Out No longer eligible based on patient's age to complete this topic RSV Immunizations Under 20 Months Aged Out No longer eligible based on patient's age to complete this topic Insurance Care Teams Strip Machine Tender Relationship Specialty Start Date End Date None, Provider, PCP - General 09/16/20
--- OUTSIDE RECORDS SUMMARY | 2024-03-11 19:06 | XMS_ITS | Clinical Summary ---
Author Organization [facility] Address [address] [place] [address] Care Team Providers Care Thermometer Tester Name Role Phone Shannan Conner MD Primary Care Provider [phone] Source Comments [facility],non-owned Affiliates and Associated Physician Practices is amultiple site organization consisting of ambulatory clinics and hospital sitesin [place], [place], [place]. This disclosure is being madepursuant to the Care Everywhere program and may not contain all information available regarding this patient. Last updated 17.[facility] Allergies No known active allergies Medications [...] by mouth 2 times daily 10/08/2019 Active [id number] 0.18/0.215/0.25 MG-25 MCG tabletIndications:Ac ne vulgaris TAKE 1 TABLET BY MOUTH ONCE DAILY . 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 - continue [...] PPD 05/24/2000 TDAP (7yrs+) 07/31/2010 VARICELLA 07/31/2010,06/10/2001 Family History Medical History Relation Name Comments None Known Brother None Known Father None Known Maternal Aunt None Known Maternal Grandfather None Known Maternal Grandmother None Known Maternal Uncle None Known Mother None Known Other None Known Paternal Aunt None Known Paternal Grandfather None Known Paternal Grandmother None Known Paternal Uncle None Known Sister Asthma Neg Hx CVA Neg Hx Cancer - Breast Neg Hx Cancer - Other Neg Hx Cancer - Skin, Melanoma Neg Hx Cancer - Skin, Non Melanoma Neg Hx Eczema Neg Hx Hemophilia Neg Hx Psoriasis Neg Hx Relation Name Status Comments Brother Father Maternal Aunt Maternal Grandfather Maternal Grandmother Maternal Uncle Mother Other Paternal Aunt Paternal Grandfather Paternal Grandmother Paternal Uncle Sister Social History Tobacco Use Types Packs/Day Years [...] 10/17/2014 1:11 PM CDT Plan of Treatment Health Maintenance Due Date Last Done Comments PAP SMEAR 1999 HIV SCREENING 05/25/2014 CHLAMYDIA/GONORRHEA SCREENING 2015 HEPATITIS C SCREENING 05/21/2017 PNEUMOCOCCAL VACCINE (1 of 2 - PCV) 05/25/2018 DTAP/TDAP/TD VACCINES (7 - Td or Tdap) 07/31/2020 07/31/2010, 05/27/2004, 12/17/2000, Additional history exists COVID-19 VACCINE ( season) 2023 INFLUENZA VACCINE (#1) 2023 2, 11/13/2010, 01/21/2009 DEPRESSION SCREENING 02/09/2024 ZOSTER VACCINE (1 of 2) 05/25/2049 HEPATITIS B VACCINE Completed 02/26/2000, 1999, 1999 HIB VACCINE Completed 12/17/2000, 11/10, 1999, Additional history exists MENINGOCOCCAL VACCINE Aged Out 08/03/2011 No onesimo blaise eligible based on patient's age to complete this topic HPV VACCINE Completed 01/01/2012, 07/10, 11/13/2010 MENINGOCOCCAL (Group B) VACCINE Aged Out No longer eligible based on patient's age to complete this topic Care Teams Thermometer Tester Relationship Specialty Start Date End Date Shannan Conner MD PCP - General 08/03/17
[2024-03-11 19:23] VITALS: BP 142/83; PULSE 113; RESP 18; TEMP 37.1; O2SAT 99
--- NOTE | 2024-03-11 19:46 | ED.GENADULT ---
HPI - General Adult General Chief complaint: Upper Respiratory Infection Stated complaint: fever/ body chills Time Seen by Provider: 03/11/24 19:46 Source: patient Mode of arrival: ambulatory Limitations: no limitations History of Present Illness HPI narrative: 23-year-old female patient presents to [facility] with complaints of flu-like symptoms including fever, sore throat, body aches and chills that started yesterday. Patient denies taking any medications for the symptoms. Related Data Home Medications ?Medication ?Instructions ?Recorded ?Confirmed ?Last Taken ?Type spironolactone 100 mg tablet 100 mg PO DAILY 01/27/23 01/17/24 Unknown History Allergies Allergy/AdvReac Type Severity Reaction Status Date / Time No Known Allergies Allergy Verified 03/11/24 19:31 Review of Systems Review of Systems: CONSTITUTIONAL: Positive fever, body aches and chills, or sweats. EYES: Denies visual changes, redness, or discharge. ENT: positive rhinorrhea, congestion, sore throat, denies otalgia. CARDIOVASCULAR: Denies chest pain, palpitations, or edema. RESPIRATORY: Denies cough or dyspnea. GASTROINTESTINAL: Denies abdominal pain, nausea, vomiting, or diarrhea. GENITOURINARY: Denies dysuria or hematuria. SKIN: Denies rash or itching. MUSCULOSKELETAL: Denies back pain, joint pain, or myalgia. NEUROLOGIC: Denies headache, numbness, or weakness. PSYCHIATRIC: Denies anxiety or depression. [facility] Past Medical History Medical History Obesity Asthma Allergy Surgical History Surgical History History of ankle surgery History of open reduction and internal fixation (ORIF) procedure (~05/05/22) ORIF left ankle lateral malleolus fracture. [place] teeth extracted Family History Family History Mother No problems noted. Father Hypertension Dyslipidemia Sibling No problems noted. Grandparent Diabetes mellitus Arthritis Sibling History of PCOS Social History Social History Social History: 09/16/23 Patient declined to complete SDOH Smoking status: Never smoker Alcohol intake: current Drinks per week: 1 Alcohol use details: socially Substance use: never Substance use type: does not use Lack of Transportation: No Lack of Food: Never True Current Housing: I Have Housing Concerned About Future Housing: No Difficulty Paying Gas/Electric Bills: No Difficulty Paying for Meds: No Currently Unemployed: No Education: High School Diploma/GED Difficulty w/ Childcare or Family Care: No Living arrangements: with family Occupation/Education: occupation Gender identity (if verbalized by the patient): Female Sexual Orientation (if Verbalized by the Patient): Straight or Heterosexual Spiritual care concerns: No Comments At the time of my signature I agree with nursing past medical history, surgical, social, and family history. There is no relevant family history pertinent to the presenting complaint. Exam Narrative: GENERAL: Well-appearing, well-nourished, and in no acute distress. HEAD: Normocephalic, atraumatic. EYES: PERRLA and EOMI. ENT: Nares clear, no rhinorrhea or epistaxis. Mucous membranes moist. posterior pharynx no erythema, tonsillar enlargement, exudates or lesions present. Bilateral TMs are clear no erythema or foreign bodies the canal. NECK: Supple. No lymphadenopathy CHEST: Clear to auscultation. No respiratory distress. HEART: Regular rate and rhythm. No murmur heard. Normal peripheral pulses. ABDOMEN: Soft, nontender, nondistended, normal active bowel sounds. EXTREMITIES: Normal range of motion. No edema. SKIN: Warm, dry, no rash. NEURO: No focal deficits. Alert and oriented x3. Course Course Level of Care: Express Care Visit Vital Signs Vital signs: Vital Signs Temperature 37.1 C 03/11/24 19:23 Pulse Rate 113 H 03/11/24 19:23 Respiratory Rate 18 03/11/24 19:23 Blood Pressure 142/83 H 03/11/24 19:23 Pulse Oximetry 99 03/11/24 19:23 Oxygen Delivery Room Air 03/11/24 19:23 Temperature 37.1 C 03/11/24 19:23 Pulse Rate 113 H 03/11/24 19:23 Respiratory Rate 18 03/11/24 19:23 Blood Pressure 142/83 H 03/11/24 19:23 Pulse Oximetry 99 03/11/24 19:23 Oxygen Delivery Room Air 03/11/24 19:23 Vital signs reviewed. The patient has been informed that they may have pre-hypertension or Hypertension based on a BP reading in the department. I recommend that the patient call the primary care provider listed on their discharge instructions or a physician of their choice this week to arrange follow up for further evaluation of possible pre-hypertension or Hypertension Medical Decision Making MDM Narrative Medical decision making narrative: Plan of care for patient is to discharge home. Discussed with patient that she is positive for influenza A day and to take Tylenol, ibuprofen and [id number] medications. Discussed with her she has lots of rest and fluids that this should pass a couple of days. Patient verbalized understanding denies any other questions or concerns at this time. Differential Diagnosis Differential Diagnosis: Differential diagnosis: Allergic rhinitis, chronic sinusitis, tonsillitis, acute sinusitis, infectious mononucleosis, seasonal influenza, pertussis, diphtheria, meningococcal disease, viral syndrome, viral bronchitis, RSV, COVID-19 Vital Signs Vital Signs: Vital Signs Temperature 37.1 C 03/11/24 19:23 Pulse Rate 113 H 03/11/24 19:23 Respiratory Rate 18 03/11/24 19:23 Blood Pressure 142/83 H 03/11/24 19:23 Pulse Oximetry 99 03/11/24 19:23 Oxygen Delivery Room Air 03/11/24 19:23 Temperature 37.1 C 03/11/24 19:23 Pulse Rate 113 H 03/11/24 19:23 Respiratory Rate 18 03/11/24 19:23 Blood Pressure 142/83 H 03/11/24 19:23 Pulse Oximetry 99 03/11/24 19:23 Oxygen Delivery Room Air 03/11/24 19:23 Critical Care Time Critical Care Time Critical Care Time: No Discharge Plan Discharge Clinical Impression: Influenza A Patient Disposition: Home, Self-Care Condition: Stable Instructions: Antibiotic Form, Influenza (ED) Additional Instructions: Influenza (the flu) is an infection caused by the influenza virus. The flu is easily spread when an infected person coughs, sneezes, or has close contact with others. You may be able to spread the flu to others for 1 week or longer after signs or symptoms appear. DISCHARGE INSTRUCTIONS: Call your local emergency number (911 in the [place]) if: You have trouble breathing, and your lips look purple or blue. You have a seizure. Call your doctor if: You are dizzy, or you are urinating less or not at all. You have a headache with a stiff neck, and you feel tired or confused. You have new pain or pressure in your chest. Your symptoms, such as shortness of breath, vomiting, or diarrhea, get worse. Your symptoms, such as fever and coughing, seem to get better, but then get worse. You have new muscle pain or weakness. You have questions or concerns about your condition or care. Medicines: You may need any of the following: Acetaminophen decreases pain and fever. It is available without a doctor's order. Ask how much to take and how often to take it. Follow directions. Read the labels of all other medicines you are using to see if they also contain acetaminophen, or ask your doctor or pharmacist. Acetaminophen can cause liver damage if not taken correctly. Do not use more than 4 grams (4,000 milligrams) total of acetaminophen in one day. NSAIDs , such as ibuprofen, help decrease swelling, pain, and fever. This medicine is available with or without a doctor's order. NSAIDs can cause stomach bleeding or kidney problems in certain people. If you take blood thinner medicine, always ask your healthcare provider if NSAIDs are safe for you. Always read the medicine label and follow directions. Rest as much as you can to help you recover. Patient Language: Persian Prescriptions: No Action spironolactone 100 mg tablet 100 mg PO DAILY albuterol sulfate 90 mcg/actuation HFA aerosol inhaler 2 puff inhalation Q4H PRN (Reason: Bronchospasm) Qty: 8.5 2RF budesonide-formoterol [Symbicort] 80-4.5 mcg/actuation HFA aerosol inhaler 2 puff inhalation Q12H Qty: 10.2 0RF Blisovi 24 Fe 1 mg-20 mcg (24)/75 mg (4) tablet See Rx Instructions .ROUTE .COMPLEX Qty: 84 3RF Dose Instruction: TAKE 1 TABLET DAILY Rx Instructions: TAKE 1 TABLET DAILY Follow-up/Referrals: PHYSICIAN,GAMEPLAY ENGINEER [Primary Care Provider] - Time of Disposition: 19:51
[2024-03-11 19:52] LABS: EDINFLUASCREEN Positive (Negative); EDINFLUBSCREEN Negative (Negative)
[2024-03-11 19:58] VITALS: BP 124/79
== END 2024-03-11 19:58 | disposition home or self-care (01) ==
PROVIDERS: Emergency Provider Nurse Practitioner Family
DX: J10.1 Influenza due to other identified influenza virus with other respiratory manifestations (principal); J45.909 Unspecified asthma, uncomplicated; E66.9 Obesity, unspecified; Z68.31 Body mass index [BMI] 31.0-31.9, adult
CPT/HCPCS: 87804; 99212; G0463

== ENCOUNTER 2024-07-12 11:53 | Emergency (ER) | payer OTHER, SELFPAY ==
--- OUTSIDE RECORDS SUMMARY | 2024-07-12 11:55 | XMS_ITS | Data Portability ---
Author Organization [facility]/DC/CT, _CT_Brianernie Juan F ([facility]) Address [address] [place] [address] Care Team Providers Care Incident Engineer Name Role Phone RAFA SANDI Primary Care Provider [phone] Assessment No assessment recorded. Plan of Treatment Reminders Order Date Submit Date Provider Last Modified By Organization Details Last Modified Time Details Appointments None recorded. Lab PPD (purified protein derivative) , skin test [email or web address] [place] [address] Laboratory, [address] [place] [address], [phone], 13:50:12 unlisted lab - *ih* strep screen, rapid swab (inhouse only) 2021 022 ARI [facility], [address] [place], [address], 17:44:32 Referral None recorded. Procedures None recorded. Surgeries None recorded. Imaging None recorded. Medication Orders Tubersol 5 tub. unit/0.1 mL intradermal injection solution 2021 022 [email or web address] Not available 17:09:10 Patient TargetsNo targets recorded. Patient Instructions Encounter Date Encounter Id Patient Instructions Last Modified By Organization Details Last Modified Time 05/28/2021 [id number] sore throat: car e instructions [email or web address] Not available 05/28/2021 17:39:40 10/06/2021 [id number] learning about healthy weight [email or web address] Not available 10/06/2021 17:57:47 Reason for Referral None Reported. Results Created Date Observation Date Name Description Value Unit Range Abnormal Flag Note LastModifiedBy Organization Detail LastModifiedTime 05/29/19 22 05/28/2021 STREP SCREE N strep screen NEGATI VE negati ve Not Available [facility] [address] [place] [address], [phone], 05/28/2021 17:44:32 Result Notes None recorded. Problems Name Problem SNOMED Code Status Onset Date Resolution Date Notes Provider Name and Address Organization Details Recorded Time Asthma 196588910 Active 022 Sandi Gutierrez, NOEMI [address] [place] [address], [phone] , [facility] 05/28/2021 17:09:21 Problem Notes None recorded. Procedures Surgical History Date Name Laterality Status Provider Name and Address Organization Details Recorded Time extraction of wisdom tooth completed Laverne Contreras [facility] 10/06/2021 17:10:16 Imaging Results None recorded. Procedure [...] Not Available Tri-Lo-Ma rzia 0.18 mg/0.215 mg/0.25 mg-0.025 mg tablet TAKE 1 TABLET BY MOUTH ONCE DAILY. 28 DAY SUPPLY. NEEDS APPT FOR FURTHER REFILLS* * 10/06 completed Not Available Not Available Not Available ID NOW COVID-19 Test Kit TEST DIRECTED TODAY 10/06 completed Not Available Not Available Not Available Vitals Date Recorded Body weight Body mass index (BMI) Body height Heart rate Oxygen saturation Oxygen saturation in Arterial blood by Pulse oximetry Systolic blood pressure Diastolic blood pressure Provider Name and Address Organization Details Last Updated DateTime 2 82564.5 6 g 30.2 kg/m2 175.26 cm 111 /min 99 % 99 % 112 mm[Hg] 72 mm[Hg] Laverne Contreras [facility] 2 16:55:44 Date Recorded Body height Body mass index (BMI) Body weight Heart rate Oxygen saturation Oxygen saturation in Arterial blood by Pulse oximetry Body temperature Systolic blood pressure Diastolic blood pressure Provider Name and Address Organization Details Last Updated DateTime 2 175.26 cm 30.1 kg/m2 15584.1 3 g 85 /min 98 % 98 % 98.8 [degF] 128 mm[Hg] 72 mm[Hg] Laverne Contreras [facility] 2 17:08:18 Social History Question Answer Notes LastModified by [employer] Details LastModified Time Tobacco Sm[facility] Status [facility] 16:59:42 Are You Currently In School? Yes Information not available 10/06/2021 Sex: Unknown Functional Status Question Answer Note LastModified by [employer] Details LastModified Time Do you or have you ever used any other forms of tobacco or nicotine? No [email or web address] Information not available 05/28/2021 What is your level of alcohol consumption? Occasional [email or web address] Information not available 05/28/2021 Are you currently employed? Yes [email or web address] Information not available 10/06/2021 Mental Status None recorded. Family History Relationship Description Onset Age of this Age Resolved Age Notes LastModified by Organization Details LastModified Time Father No current problems or disability [email or web address] Not available 05/28 16:59:05 Mother No current problems or disability [email or web address] Not available 05/28 16:59:05 Maternal Grandfather Diabetes mellitus [email or web address] Not available 2021 17:10:48 Medical History Condition Response Mood Disorder, other N Gynecological History Statement/Question Response Date of LMP 09/29/2021 Obstetrics History GPAL:G 0 P 0 0 0 0 Immunizations Vaccine Type Date Status Note Provider Yann marin and Address Organization Details Recorded Time COVID-19, mRNA, LNP-S, PF, 100 mcg/0.5mL dose or 50 mcg/0.25mL dose 1 [facility] 16:57:44 COVID-19, mRNA, LNP-S, PF, 100 mcg/0.5mL dose or 50 mcg/0.25mL dose 1 [facility]28[facility]21 16:58:02 COVID-19, mRNA, LNP-S, PF, 100 mcg/0.5mL dose or 50 mcg/0.25mL dose 2 [facility]28[facility]21 16:58:23 Influenza, split virus, quadrivalent, preservative 1 completed Sandi Gutierrez NP [address] [place] [address], [phone], [facility] 05/28/2021 17:09:54 Past Encounters Encounter ID Performer Location Encounter Start Date Encounter Closed Date Diagnosis/Indication Diagnosis SNOMED-CT Code Diagnosis ICD10 Code Diagnosis Note [id number] Sandi Gutierrez NP [place] [address] [place] [address] 05/28/2021 16:47:24 06/12/2021 11:09:06 Sore throat 132414381 J02.9 Negative rapid strep screen in office [...] other concerns. History an d physical examination, [facility] 26091079 Z02.0 05/28/2021 iscussed healthy diet and continued regular exercise. Dentist twice a year for preventive visits and eye doctor for every-othe r-year eye exams. Safety.For m for student teaching completed. TST placed- patient will return on Wednesday05/30/2021 to have that read. [id number] Sandi Gutierrez NP _[place]_[facility] [address] [address] 05/30/2021 16:37:20 06/05/2021 03:25:09 Tuberculosis screening 388458479 Z11.1 Discussed with patient. [id number] Sandi Gutierrez NP _[place]_[facility] [address] [place] [id number] 10/06/2021 16:47:40 10/17/2021 11:17:02 Adult health examination 925168197 Z00.00 Counseled on diet, exercise, safe sex, [...] concerning symptoms, or with other concerns. Obesity 995740490 E66.9 Controlled /Stable. Continue efforts at improved diet and exercise. Health Concerns Section Related Observation LastModified by Organization Detai ls LastModified Time None Recorded Concern Status LastModified by Organization Details LastModified Time None Recorded Advance Directives Directive None Recorded Payers Insurance Date Sequence Insurance Name Policy Number Policy Hawkins Covered Member ID Hawkins Member ID Guarantor Name 10/17/2021 1 [facility] [id number] Santi Santillan [id number] Amalia Santillan Notes Date Note Type Note Provider Name and Address Organization Details Recorded Time 05/28/2021 text/html Sore ThroatRepor domingo bypatient.Location:[facility] Onset/Timing:date of onset 05/27 Duration:started 1 [...] Also took a Zyrtec-D for symptoms. Sandi Gutierrez NP [address] [place] [address], [phone], [facility] 05/28/2021 17:29:10 10/06/2021 text/html Patient reports she is in good health. Tries to eat a well balanced diet- [...] vaccine series. No complaints or concerns. Sandi Gutierrez NP [address] [place] [address], [phone], [facility]/[place]/10/06/2021 17:57:52 OBGyn Episode No OBEpisode recorded.
--- OUTSIDE RECORDS SUMMARY | 2024-07-12 11:55 | XMS_ITS | Clinical Summary ---
Author Organization [facility] Address [address] [facility] [place] [address] Care Team Providers Care Shorer Name Role Phone Shannan Conner MD Primary Care Provider [phone] Source Comments [facility],non-owned Affiliates and Associated Physician Practices is amultiple site organization consisting of ambulatory clinics and hospital sitesin [place], [place], [place] and [place]. This disclosure is being madepursuant to the Care Everywhere program and may not contain all information available regarding this patient. Last updated 17.[facility] Allergies No known active allergies Medications * Be aware that medications may not be up to date on this document. Alwaysverify current medications with the patient. albuterol HFA (PROAIR HFA) 108 (90 BASE) MCG/ACT inhaler Inhale 2 Puffs by mouth every 4 hours as needed for Wheezing 1 Inhaler 12/11/2015 Active SYMBICORT 80-4.5 MCG/ACT inhaler Inhale 2 puffs by mouth 2 times daily 10/08/2019 Active [id number] 0.18/0.215/0.25 MG-25 MCG tabletIndicatio ns:Acne vulgaris TAKE 1 TABLET BY MOUTH ONCE DAILY . 30 DAY SUPPLY 28 tablet 05/19/2021 Active Active Problems Problem Noted Date Diagnosed Date Acne vulgaris 02/19/2020 Assessment & Plan (02/19/2020 11:55 AM [facility]): - controlled to pt liking - continue otc differin qod and OCPs as below -discussed pt to get pap smear if sexually active and wear condoms Proteinuria 10/17/2014 Asthma, intermittent 08/03/2011 Resolved Problems Problem Noted Date Diagnosed Date Resolved Date Exercise-induced asthma 08/03/2011 07/0 02/2013 Asthma 04/30/2009 08/03/2011 Immunizations Immunization Administration Dates Next Due INFLUENZA VACCINE, TRIV. (AF LURIA, FLUZONE TRIVALENT; 6MO+) (IIV3) 01/01/2012,11/13/2010,01/21/2009 DTaP VACCINE IM (6wk-6yrs) 05/27/2004,,1999,10/05,1999 HEP A PEDS 2 DOSE 01/01/2012,07/31/2010 HEP B VACCINE, PED/ADOL 02/26/2000,1999, HIB BOOSTER 12/17/2000, 0,1999,08/04 Human Papilloma Virus Roz valent Vaccine 01/01/2012,08/03/2011,11/13/2010 MENINGOCOCCAL ACWY (MCV4P) VAC IM 08/03/2011 MMR 05/27/2004,05/28/2000 POLIO IPV 05/27/2004, 1,1999,08/04 [...] at Not on file Legal Sex Female 6:49 AM [facility] Gender Identity Not on file Sexual Orientation Not on file Last Filed Vital Signs Vital Sign Reading Time Taken Comments Blood Pressure 106/58 10/17/2014 1:11 PM CDT Pulse 76 09/19/2012 10:33 AM CDT Temperature 36.3 C (97.4 F) 12/26/2013 3:50 PM [facility] Respiratory Rate - - Oxygen Saturation - - Inhaled Oxygen Concentration - - Weight 76.9 kg (169 lb 8.5 oz) 10/17/2014 1:11 P M CDT Height 172.3 cm (5' 7.84) 10/17/2014 1:11 PM CD T Body Mass Index 25.9 10/17/2014 1:11 PM CDT Plan of Treatment Health Maintenance Due Date Last Done Comments PAP SMEAR 1999 HIV SCREENING 05/25/2014 CHLAMYDIA/GONORRHEA SCREENING 2015 HEPATITIS C SCREENING 05/21/2017 PNEUMOCOCCAL VACCINE (1 of 2 - PCV) 05/25/2018 DTAP/TDAP/TD VACCINES (7 - Td or Tdap) 07/31/2020 07/31/2010, 05/27/2004, 12/17/2000, Additional history exists COVID-19 VACCINE ( season) 2023 DEPRESSION SCREENING 02/09/2024 INFLUENZA VACCINE (Season Ended) 2024 01/01/2012, 11/13/2010, 01/21/2009 ZOSTER VACCINE (1 of 2) 05/25/2049 HEPATITIS B VACCINE Completed 02/26/2000, 1999, 1999 HIB VACCINE Completed 12/17/2000, 11/10, 1999, Additional history exists MENINGOCOCCAL GROUPS A/C/Y/W VACCINE Aged Out 08/03/2011 No longer eligible based on patient's age to complete this topic HPV VACCINE Completed 01/01/2012, 07/10, 11/13/2010 MENINGOCOCCAL (Group B) VACCINE SHARED DECISION-MAKING Aged Out No longer eligible based on patient's age to complete this topic Insurance Care Teams Shorer Relationship Specialty Start Date End Date Shannan Conner MD PCP - General 08/03/17
[2024-07-12 12:02] VITALS: BP 128/78; PULSE 92; RESP 17; TEMP 36.5; O2SAT 100
--- NOTE | 2024-07-12 12:38 | ED.SKABFB ---
HPI - Skin/Abscess/Foreign Bdy General Chief complaint: Skin/Abscess/Foreign Body Stated complaint: Skin/Abscess/Foreign Body History of Present Illness HPI narrative: Patient is a 24-year-old female presents to the ER with skin around her coccyx. she reports she 1st noticed this night she was showering yesterday. Patient denies any fevers, discharge from the site, or injury to the site. She reports the site does not hurt when she is sitting, but is painful when she touches it. Pt endorses a history of asthma, L ankle surgery, and takes control. Related Data Home Medications ?Medication ?Instructions ?Recorded ?Confirmed ?Last Taken ?Type spironolactone 100 mg tablet 100 mg PO DAILY 01/27/23 05/24/24 Unknown History Allergies Allergy/AdvReac Type Severity Reaction Status Date / Time No Known Allergies Allergy Verified 07/12/24 12:19 Review of Systems Review of Systems: All systems reviewed & are unremarkable except as noted in HPI and below PMFSH Past Medical History Medical History Obesity Asthma Allergy Surgical History Surgical History History of ankle surgery History of open reduction and internal fixation (ORIF) procedure (~05/05/22) ORIF left ankle lateral malleolus fracture. [place] teeth extracted Family History Family History Mother No problems noted. Father Hypertension Dyslipidemia Sibling No problems noted. Grandparent Diabetes mellitus Arthritis Sibling History of PCOS Social History Social History Smoking status: Never smoker Alcohol intake: current Drinks per week: 1 Alcohol use details: socially Substance use: never Substance use type: does not use Current Housing: Decline to Answer Concerned About Future Housing: Decline to Answer Difficulty Paying Gas/Electric Bills: Decline to Answer Difficulty Paying for Meds: Decline to Answer Currently Unemployed: Decline to Answer Education: Decline to Answer Difficulty w/ Childcare or Family Care: Decline to Answer Living arrangements: with family Occupation/Education: occupation Additional occupation/education comments: teacher Gender identity (if verbalized by the patient): Female Sexual Orientation (if Verbalized by the Patient): Straight or Heterosexual Spiritual care concerns: No Exam Narrative: GENERAL: Well appearing, well-nourished, non-toxic, in no acute distress. NECK: Supple. No adenopathy, no masses. RESPIRATORY: Airway patent, respirations nonlabored. Clear to auscultation bilaterally, no rales, rhonchi, wheezing. CARDIOVASCULAR: Regular rate and rhythm without murmurs, rubs, or gallops. Peripheral pulses 2+ and equal bilaterally. ABDOMINAL: Soft, nontender, nondistended, no hepatosplenomegaly. Normoactive BS. MUSCULOSKELETAL: Moves all extremities. Strength/ROM intact without gross deformities. SKIN: Warm, dry, normal color. No rashes. Approximately 1 inch linear, surface-level ulceration to area proximal to rectum, around pt's coccyx. Area down not extend to rectum. Course Course Level of Care: Express Care Visit Vital Signs Vital signs: Vital Signs Temperature 36.5 C 07/12/24 12:02 Pulse Rate 92 07/12/24 12:02 Respiratory Rate 17 07/12/24 12:02 Blood Pressure 128/78 07/12/24 12:02 Pulse Oximetry 100 07/12/24 12:02 Oxygen Delivery Room Air 07/12/24 12:02 Temperature 36.5 C 07/12/24 12:02 Pulse Rate 92 07/12/24 12:02 Respiratory Rate 17 07/12/24 12:02 Blood Pressure 128/78 07/12/24 12:02 Pulse Oximetry 100 07/12/24 12:02 Oxygen Delivery Room Air 07/12/24 12:02 MDM - Skin/Abscess/Foreign Bdy MDM Narrative Medical decision making narrative: Patient is a 24-year-old female presents to the ER with skin around her coccyx. she reports she 1st noticed this night she was showering yesterday. Patient denies any fevers, discharge from the site, or injury to the site. She reports the site does not hurt when she is sitting, but is painful when she touches it. Pt endorses a history of asthma, L ankle surgery, and takes control. Pt is concerned because she is leaving for a trip to [place] later this afternoon. She reports she is afraid she has an abscess. Reassurance was provided to pt. It was explained that there was no palpable abscess, no drainage from site, no rashes, no warmth, and no areas of redness besides the slight ulceration. Pt was educated on signs/symptoms to observe for that may indicate a bacterial or yeast infection. She reports she is traveling with multiple nurses who would be able to help her assess her skin while they are traveling. Pt will be prescribed Mupirocin and Nystatin powder to bring with her on her trip to use as needed. She verbalizes understanding and is in agreement with plan. All questions answered. Differential Diagnosis Differential diagnosis: Likely abscess of skin or subcutaneous tissue, urticaria, cellulitis, eczema, contact dermatitis and other (ulceration) Discharge Plan Discharge Clinical Impression: Skin ulcer of buttock, limited to breakdown of skin Patient Disposition: Home Condition: Stable Instructions: Antibiotic Form Additional Instructions: Please present to the ER with any worsening symptoms. Follow-up with primary care provider as needed. Take all medications as prescribed. Patient Language: Turkish Prescriptions: New mupirocin-lidocaine 2-2 % ointment 1 ea topical BID-TID Qty: 30 0RF nystatin 100,000 unit/gram powder 1 applic topical TID Qty: 60 0RF No Action Blisovi 24 Fe 1 mg-20 mcg (24)/75 mg (4) tablet See Rx Instructions .ROUTE .COMPLEX Qty: 84 3RF Dose Instruction: TAKE 1 TABLET DAILY Rx Instructions: TAKE 1 TABLET DAILY spironolactone 100 mg tablet 100 mg PO DAILY albuterol sulfate 90 mcg/actuation HFA aerosol inhaler 2 puff inhalation Q4H PRN (Reason: Bronchospasm) Qty: 8.5 2RF budesonide-formoterol [Symbicort] 80-4.5 mcg/actuation HFA aerosol inhaler 2 puff inhalation Q12H Qty: 10.2 0RF Follow-up/Referrals: PHYSICIAN,SUPERINTENDENT [employer] [Primary Care Provider] - Time of Disposition: 12:38
== END 2024-07-12 12:39 | disposition home or self-care (01) ==
PROVIDERS: Emergency Provider Registered Nurse
DX: L98.411 Non-pressure chronic ulcer of buttock limited to breakdown of skin (principal); J45.909 Unspecified asthma, uncomplicated; E66.9 Obesity, unspecified; Z68.30 Body mass index [BMI] 30.0-30.9, adult
CPT/HCPCS: 99213; G0463

== ENCOUNTER 2024-12-10 14:58 | Emergency (ER) | payer OTHER, SELFPAY ==
--- OUTSIDE RECORDS SUMMARY | 2024-12-10 15:01 | XMS_ITS | Data Portability ---
Author Organization [facility]/[place], _[place]ernie Juan F ([facility]) Address [address] [place] [address] Care Team Providers Care Project Asst Name Role Phone VANDA CRAIGE Primary Care Provider [phone] Assessment No assessment recorded. Plan of Treatment Reminders Order Date Submit Date Provider Last Modified By Organization Details Last Modified Time Details Appointments None recorded. Lab PPD (purified protein derivative) , skin test 2021 022 joanne 4 [facility], [address] [place], [address], 13:50:12 unlisted lab - *ih* strep screen, rapid swab (inhouse only) 2021 022 ARI [facility], [address] [place] [address], [phone], 17:44:32 Referral None recorded. Procedures None recorded. Surgeries None recorded. Imaging None recorded. Medication Orders Tubersol 5 tub. unit/0.1 mL intradermal injection solution 2021 022 [email or web address] Not available 17:09:10 Patient TargetsNo targets recorded. Patient Instructions Encounter Date Encounter Id Patient Instructions Last Modified By Organization Details Last Modified Time 05/28/2021 [id number] sore throat: car e instructions sachin Not available 05/28/2021 17:39:40 10/06/2021 [id number] learning about healthy weight [email or web address] Not available 10/06/2021 17:57:47 Reason for Referral None Reported. Results Created Date Observation Date Name Description Value Unit Range Abnormal Flag Note LastModifiedBy Organization Detail LastModifiedTime 05/29/19 22 05/28/2021 STREP SCREE N strep screen NEGATI VE negati ve Not Available [facility] [address], [place], [address], 05/28/2021 17:44:32 Result Notes None recorded. Problems Name Problem SNOMED Code Status Onset Date Resolution Date Notes Provider Name and Address Organization Details Recorded Time Asthma 490906002 Active 022 Sandi downing [facility] 05/28/2021 17:09:21 Problem Notes None recorded. Procedures Surgical History Date Name Laterality Status Provider Name and Address Organization Details Recorded Time extraction of wisdom tooth completed Laverne Contreras [facility] 10/06/2021 17:10:16 Imaging Results None recorded. [...] in Arterial blood by Pulse oximetry Systolic And Diastolic Provider Name and Address Organization Details Last Updated DateTime 2 86308.5 6 g 30.2 kg/m2 175.26 cm 111 /min 99 % 99 % 112/72 mm[Hg] Laverne Contreras [facility] 2 16:55:44 Date Recorded Body height Body mass index (BMI) Body weight Heart rate Oxygen saturation Oxygen saturation in Arterial blood by Pulse oximetry Body temperature Systolic And Diastolic Provider Name and Address Organization Details Last Updated DateTime 2 175.26 cm 30.1 kg/m2 50800.1 3 g 85 /min 98 % 98 % 98.8 [degF] 128/72 mm[Hg] Laverne Contreras [facility] 2 17:08:18 Social History Question Answer Notes LastModified by LAFASO Details LastModified Time Tobacco Smoking Status Never Smoker Laverne Contreras [facility] 05/28/2021 16:59:42 Are You Currently In School? Yes Information not available 10/06/2021 Sex: Unknown Functional Status Question Answer Note LastModified by LAFASO Details LastModified Time Do you or have you ever used any other forms of tobacco or nicotine? No [email or web address] Information not available 05/28/2021 What is your level of alcohol consumption? Occasional Information not available 05/28/2021 Are you currently employed? Yes [email or web address] Information not available 10/06/2021 Mental Status None recorded. Family History Relationship Description Onset Age of this Age Resolved Age Notes LastModified by Organization Details LastModified Time Father No current problems or disability [email or web address] Not available 05/28 16:59:05 Mother No current problems or disability [email or web address] Not available 05/28 16:59:05 Maternal Grandfather Diabetes mellitus Not available 2021 17:10:48 Medical History Condition Response Mood Disorder, other N Gynecological History Statement/Question Response Date of LMP 09/29/2021 Obstetrics History GPAL:G 0 P 0 0 0 0 Immunizations Vaccine Type Date Status Note Provider Yann marin and Address Organization Details Recorded Time COVID-19, mRNA, LNP-S, PF, 100 mcg/0.5mL dose or 50 mcg/0.25mL dose 1 completed Laverne downing [facility] 05/28/2021 16:57:44 COVID-19, mRNA, LNP-S, PF, 100 mcg/0.5mL dose or 50 mcg/0.25mL dose 1 completed Laverne downing [facility] 05/28/2021 16:58:02 COVID-19, mRNA, LNP-S, PF, 100 mcg/0.5mL dose or 50 mcg/0.25mL dose 2 completed Laverne downing [facility] 05/28/2021 16:58:23 Influenza, split virus, quadrivalent, preservative 1 completed Sandi Craig [facility] 05/28/2021 17:09:54 Past Encounters Encounter ID Performer Location Encounter Start Date Encounter Closed Date Diagnosis/Indication Diagnosis SNOMED-CT Code Diagnosis ICD10 Code Diagnosis IMO Codes Diagnosis Note [id number] Sandi Craig NP [place] [facility] [address] [place] [phone] 05/28/2021 16:47:24 06/12/2021 11:09:06 Sore throat 167994615 J02.9 Negative rapid strep screen in office [...] other concerns. History an d physical examination, [facility] 40745343 Z02.0 05/28/2021 iscussed healthy diet and continued regular exercise. Dentist twice a year for preventive visits and eye doctor for every-othe r-year eye exams. Safety.For m for student teaching completed. TST placed- patient will return on Wednesday05/30/2021 to have that read. [id number] Sandi Craig NP _[place] [facility] [address] [place] [phone] 3 05/30/2021 16:37:20 06/05/2021 03:25:09 Tuberculosis screening 065031973 Z11.1 Discussed with patient. [id number] Sandi Craig NP [place] [facility] [address] [place] [phone] 10/06/2021 16:47:40 10/17/2021 11:17:02 Adult health examination 753064501 Z00.00 Counseled on diet, exercise, safe sex, [...] concerning symptoms, or with other concerns. Obesity 075038927 E66.9 Controlled /Stable. Continue efforts at improved diet and exercise. Health Concerns Section Related Observation LastModified by Organization Detai ls LastModified Time None Recorded Concern Status LastModified by Organization Details LastModified Time None Recorded Advance Directives Directive None Recorded Payers Insurance Date Sequence Insurance Name Policy Number Policy Hawkins Covered Member ID Hawkins Member ID Guarantor Name 10/17/2021 1 [facility] [id number] Santi Santillan [id number] Amalia Santillan Notes Date Note Type Note Provider Name and Address Organization Details Recorded Time 05/28/2021 text/html Sore ThroatRepor domingo by PatientHPIFor quality, patient reportsdifficulty swallowing. For location, patient reportsmiddle. For onset/timing, patient reportsdate of onset 05/27. For duration, patient reportsstarted 1 day(s) ago. For severity, patient reportssame. 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 [...] Also took a Zyrtec-D for symptoms. Sandi downing [facility] 05/28/2021 17:29:10 10/06/2021 text/html ROS as noted in the HPI Patient reports she is in good health. [...] vaccine series. No complaints or concerns. Sandi downing [facility] 10/06/2021 17:57:52 OBGyn Episode No OBEpisode recorded.
--- OUTSIDE RECORDS SUMMARY | 2024-12-10 15:01 | XMS_ITS | Clinical Summary ---
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 Gender Identity Not on file Sexual Orientation Not on file Last Filed Vital Signs Vital Sign Reading Time Taken Comments Blood Pressure 130/75 09/16/2020 11:23 AM CDT Pulse 73 09/16/2020 11:23 AM CDT Temperature 36.8 C (98.3 F) 09/16/2020 11:23 AM CDT Respiratory Rate 18 09/16/2020 11:23 AM CDT Oxygen Saturation 98% 09/16/2020 11:23 AM CDT Inhaled Oxygen Concentration - - Weight 90.7 kg (200 lb) 09/16/2020 11:23 AM CDT Height 172.7 cm (5' 8) 09/16/2020 11:23 AM CDT Body Mass Index [...] Additional history exists COVID-19 Vaccine ( season) 2024 Influenza Adult (#1) 2024 01/01/2012, 11/13/2010, 01/21/2009 Hepatitis B Vaccines Completed 02/26/2000, 1999, 1999 Meningococcal Vaccine Aged Out 08/03/2011 No onesimo blaise eligible based on patient's age to complete this topic HPV Vaccines Completed 01/01/2012, 07/10, 11/13/2010 Hepatitis A Vaccines Completed 01/01/2012, 08/01/19 11 Meningococcal B Vaccine Aged Out No l onger eligible based on patient's age to complete this topic Pneumococcal Vaccine: Pediatrics (0 to 5 Years) and At-Risk Patients (6 to 49 Years) Aged Out No longer eligible based on patient's age to complete this topic RSV Immunizations Under 20 Months Aged Out No longer eligible based on patient's age to complete this topic Insurance Care Teams Hat Measurer Relationship Specialty Start Date End Date None, Provider, PCP - General 09/16/20
[2024-12-10 15:10] VITALS: BP 120/74; PULSE 95; RESP 18; TEMP 36.3; O2SAT 99
--- NOTE | 2024-12-10 15:15 | ED.GENADULT ---
HPI - General Adult General Chief complaint: Upper Respiratory Infection Stated complaint: Sore throat History of Present Illness HPI narrative: Amalia Santillan This is a 24-year-old female who presents today with complaints of having a sore throat that started 3 days ago and got much worse today. She does not feel the pain is one-sided but both the quality and down the center. Related Data Home Medications ?Medication ?Instructions ?Recorded ?Confirmed ?Last Taken ?Type spironolactone 100 mg tablet 100 mg PO DAILY 01/27/23 11/21/24 Unknown History Allergies Allergy/AdvReac Type Severity Reaction Status Date / Time No Known Allergies Allergy Verified 12/10/24 15:02 Review of Systems Review of Systems: All systems reviewed & are unremarkable except as noted in HPI and below PMFSH Past Medical History Medical History Obesity Asthma Allergy Surgical History Surgical History History of ankle surgery History of open reduction and internal fixation (ORIF) procedure (~05/05/22) ORIF left ankle lateral malleolus fracture. [place] teeth extracted Family History Family History Mother No problems noted. Father Hypertension Dyslipidemia Sibling No problems noted. Grandparent Diabetes mellitus Arthritis Sibling History of PCOS Social History Social History Smoking status: Never smoker Alcohol intake: current Drinks per week: 1 Alcohol use details: socially Substance use: never Substance use type: does not use Current Housing: Decline to Answer Concerned About Future Housing: Decline to Answer Difficulty Paying Gas/Electric Bills: Decline to Answer Difficulty Paying for Meds: Decline to Answer Currently Unemployed: Decline to Answer Education: Decline to Answer Difficulty w/ Childcare or Family Care: Decline to Answer Living arrangements: with family Occupation/Education: occupation Additional occupation/education comments: teacher Gender identity (if verbalized by the patient): Female Sexual Orientation (if Verbalized by the Patient): Straight or Heterosexual Spiritual care concerns: No Exam Narrative: GENERAL: Well-appearing, well-nourished, and in no acute distress. HEAD: Normocephalic, atraumatic. EYES: PERRLA and EOMI. ENT: Nares clear, no rhinorrhea or epistaxis. Mucous membranes moist. Oropharynx + erythemic tonsils and hypertrophy +2-3 and exudate, Moderate bilateral lymphopathy on exam, Bilateral TMs pearly mccoy non bulging NECK: Supple. + Bilateral cervical lymphadenopathy CHEST: Clear to auscultation. No respiratory distress. No wheezes rales or rhonchi HEART: Regular rate and rhythm. No murmur heard. Normal peripheral pulses. EXTREMITIES: Normal range of motion. No edema. SKIN: Warm, dry, no rash. NEURO: No focal deficits. Alert and oriented x3. PSYCH: Normal mood and affect. Course Course Level of Care: Express Care Visit Vital Signs Vital signs: Vital Signs Temperature 36.3 C L 12/10/24 15:10 Pulse Rate 95 12/10/24 15:10 Respiratory Rate 18 12/10/24 15:10 Blood Pressure 120/74 12/10/24 15:10 Pulse Oximetry 99 12/10/24 15:10 Oxygen Delivery Room Air 12/10/24 15:10 Temperature 36.3 C L 12/10/24 15:10 Pulse Rate 95 12/10/24 15:10 Respiratory Rate 18 12/10/24 15:10 Blood Pressure 120/74 12/10/24 15:10 Pulse Oximetry 99 12/10/24 15:10 Oxygen Delivery Room Air 12/10/24 15:10 Medical Decision Making MDM Narrative Medical decision making narrative: This 24 year old patient presents with symptoms most suggestive of acute tonsillitis. Lungs are clear bilaterally without any respiratory distress or accessory muscle use. Rapid strep - Negative, pt does not believe it was a great sample since she gagged. Strep culture- pending Based on the amount of swelling/ erythema/ exudate and the moderate lymphadenopathy on exam will treat empirically for acute tonsillitis patient discharged home in stable condition with expectant management. Return precautions were provided. Procedures: Pulse oximetry interpretation - not hypoxic. Review of medical records. DISPOSITION: Discharged home in stable condition. IMPRESSION: Acute Tonsillitis Medical Records Medical records reviewed: Yes I reviewed the external patient's medical records. Vital Signs Vital Signs: Vital Signs Temperature 36.3 C L 12/10/24 15:10 Pulse Rate 95 12/10/24 15:10 Respiratory Rate 18 12/10/24 15:10 Blood Pressure 120/74 12/10/24 15:10 Pulse Oximetry 99 12/10/24 15:10 Oxygen Delivery Room Air 12/10/24 15:10 Temperature 36.3 C L 12/10/24 15:10 Pulse Rate 95 12/10/24 15:10 Respiratory Rate 18 12/10/24 15:10 Blood Pressure 120/74 12/10/24 15:10 Pulse Oximetry 99 12/10/24 15:10 Oxygen Delivery Room Air 12/10/24 15:10 Vitals reviewed by me Lab Data Lab results reviewed: Yes I reviewed the patient's lab results. Discharge Plan Discharge Clinical Impression: Acute bacterial tonsillitis Patient Disposition: Home Condition: Stable Instructions: Antibiotic Form, Tonsillitis (ED) Additional Instructions: Start the Amoxicllin as ordered twice daily for 10 days You may also try salt water gargle to help with the inflammation Continue Motrin for pian and inflammation Follow up with your PCP in 1 week to ensure you area improving IF you feel like you are having new or worsening symptoms like shortness of breath, difficulty breathing, difficulty swallowing, vomiting then go to the ER Patient Language: Yoruba Prescriptions: New amoxicillin 500 mg capsule 500 mg PO Q12H Qty: 20 0RF No Action mupirocin-lidocaine 2-2 % ointment 1 ea topical BID-TID Qty: 30 0RF nystatin 100,000 unit/gram powder 1 applic topical TID Qty: 60 0RF Blisovi 24 Fe 1 mg-20 mcg (24)/75 mg (4) tablet See Rx Instructions .ROUTE .COMPLEX Qty: 84 3RF Dose Instruction: TAKE 1 TABLET DAILY Rx Instructions: TAKE 1 TABLET DAILY spironolactone 100 mg tablet 100 mg PO DAILY albuterol sulfate 90 mcg/actuation HFA aerosol inhaler 2 puff inhalation Q4H PRN (Reason: Bronchospasm) Qty: 8.5 2RF amoxicillin-pot clavulanate 875-125 mg tablet 1 tablet PO BID Qty: 14 0RF budesonide-formoterol [Symbicort] 80-4.5 mcg/actuation HFA aerosol inhaler 2 puff inhalation Q12H Qty: 10.2 0RF Follow-up/Referrals: Laurence Peck APRN [Primary Care Provider, Family Practice] - 1 Week Stand Alone Forms: Work/School Release IP Time of Disposition: 15:23
[2024-12-10 15:18] LABS: EDSTREPNEGPOS1 Negative (Negative)
== END 2024-12-10 15:25 | disposition home or self-care (01) ==
PROVIDERS: Emergency Provider Nurse Practitioner Family; PCP Nurse Practitioner Family
DX: J03.90 Acute tonsillitis, unspecified (principal); J45.909 Unspecified asthma, uncomplicated; E66.9 Obesity, unspecified; Z68.31 Body mass index [BMI] 31.0-31.9, adult
CPT/HCPCS: 87081; 87880; 99213; G0463